=== PATIENT | female | born 1985 | race African-American/Black ===

== ENCOUNTER 2022-07-23 09:20 | Outpatient (REF) | payer OTHER, SELFPAY ==
[2022-07-23 12:01] LABS: Hematocrit 33.7 % (37.0-47.0); Hemoglobin 10.9 g/dl (12.0-16.0); Mean Corpuscular HGB Conc 32.3 g/dl (31.0-35.0); Mean Corpuscular Hemoglobin 23.8 pg (27.0-33.0); Mean Corpuscular Volume 73.6 fL (80.0-98.0); Mean Platelet Volume 9.9 fL (9.4-12.3); Platelet Count 300 X10*3/uL (160-400); Red Blood Count 4.58 X10*6/uL (4.20-5.50); White Blood Count 6.6 X10*3/uL (4.8-10.8)
[2022-07-23 13:46] LABS: Alanine Aminotransferase 15 U/L (0-31); Albumin Level 3.9 g/dL (3.5-5.0); Alkaline Phosphatase 53 U/L (39-117); Anion Gap 12 (12-20); Aspartate Amino Transferase 17 U/L (5-31); Bilirubin Total 0.4 mg/dL (0.0-1.0); Blood Urea Nitrogen 20 mg/dL (9-16); Calcium 9.2 mg/dL (8.4-10.2); Carbon Dioxide 23 mmol/L (22-29); Chloride 108 mmol/L (96-108); Cholesterol 236 mg/dL; Estimated Glomerular Filt Rate > 60; Glucose Fasting 80 mg/dL (60-99); HDL Cholesterol 46 mg/dL; Iron 29 mcg/dL (30-160); LDL Cholesterol Calculated 177 mg/dl; Percent Iron Saturation 10 % (15-50); Potassium 4.5 mmol/L (3.3-5.1); Sodium 138 mmol/L (135-145); Total Iron Binding Capacity 290 mcg/dL (228-428); Total Protein 7.1 g/dL (6.5-8.0); Triglycerides 68 mg/dL; Unsaturated Iron Binding 261 ug/dL
[2022-07-23 14:05] LABS: Ferritin 12 ng/mL (10-122); TSH reflex Free T4 0.47 uIU/mL (0.32-4.0)
== END 2022-07-23 09:21 | disposition home or self-care (01) ==
LOC: HO.WFDLDS 09:20
PROVIDERS: Visit Provider Nurse Practitioner Family
DX: Z00.00 Encounter for general adult medical examination without abnormal findings (principal)
CPT/HCPCS: 36415; 80053; 80061; 82728; 83540; 84443; 85027

== ENCOUNTER 2022-08-23 09:52 | Outpatient (REF) | payer OTHER, SELFPAY ==
[2022-08-23 12:24] LABS: Iron 44 mcg/dL (30-160); Percent Iron Saturation 16 % (15-50); Total Iron Binding Capacity 268 mcg/dL (228-428); Unsaturated Iron Binding 224 ug/dL
[2022-08-23 12:40] LABS: Ferritin 32 ng/mL (10-122)
== END 2022-08-23 09:53 | disposition home or self-care (01) ==
LOC: HO.WFDLDS 09:52
PROVIDERS: Visit Provider Nurse Practitioner Family
DX: D64.9 Anemia, unspecified (principal)
CPT/HCPCS: 36415; 82728; 83540

== ENCOUNTER 2022-08-27 12:49 | Outpatient (REF) | payer OTHER, SELFPAY ==
[2022-08-27 14:17] LABS: Hematocrit 33.8 % (37.0-47.0); Mean Corpuscular HGB Conc 32.5 g/dl (31.0-35.0); Mean Corpuscular Volume 73.8 fL (80.0-98.0); Mean Platelet Volume 9.5 fL (9.4-12.3); Platelet Count 331 X10*3/uL (160-400); Red Blood Count 4.58 X10*6/uL (4.20-5.50); Red Cell Distribution Width 17.6 % (11.0-16.0); White Blood Count 6.4 X10*3/uL (4.8-10.8)
== END 2022-08-27 12:50 | disposition home or self-care (01) ==
LOC: HO.WFDLDS 12:49
PROVIDERS: Visit Provider Nurse Practitioner Family
DX: D64.9 Anemia, unspecified (principal)
CPT/HCPCS: 36415; 85027

== ENCOUNTER 2022-11-06 11:16 | Outpatient (REF) | payer OTHER, SELFPAY ==
[2022-11-06 14:33] LABS: Hematocrit 37.1 % (37.0-47.0); Hemoglobin 12.1 g/dl (12.0-16.0); Mean Corpuscular HGB Conc 32.6 g/dl (31.0-35.0); Mean Corpuscular Hemoglobin 25.2 pg (27.0-33.0); Mean Corpuscular Volume 77.3 fL (80.0-98.0); Mean Platelet Volume 10.1 fL (9.4-12.3); Platelet Count 315 X10*3/uL (160-400); Red Cell Distribution Width 16.8 % (11.0-16.0); White Blood Count 5.1 X10*3/uL (4.8-10.8)
== END 2022-11-06 11:17 | disposition home or self-care (01) ==
LOC: HO.WFDLDS 11:16
PROVIDERS: Visit Provider Nurse Practitioner Family
DX: D50.9 Iron deficiency anemia, unspecified (principal)
CPT/HCPCS: 36415; 85027

== ENCOUNTER 2022-11-08 16:33 | Outpatient (AMB) | payer OTHER, SELFPAY ==
[2022-11-08 16:44] VITALS: BP 118/74; PULSE 84; RESP 12; TEMP 36.4; O2SAT 99; BMI 41.0
--- NOTE | 2022-11-08 16:44 | MHC.PC.OV ---
Vital Signs 11/08/22 16:44 Height 5 ft 5 in Weight 246 lb 4 oz BMI 41.0 BP 118/74 Blood Pressure Location Lt brachial Position Sitting Respiration 12 Pulse 84 Pulse Source Pulse Oximeter Temp 97.6 F Temp Source Temporal Artery Scan Pulse Oximetry (%) 99 Oxygen Delivery Method Room Air Intake Visit Reasons: 6W. F/U-Anemia Intake Note: Patient states that when she was taking iron pills she felt as though they were causing her heart to flutter, and when she looked it up that was one of the side effects. Patient ultimately stopped taking them due to heart flutters and since she stopped taking them she hasn't experienced a heart flutter since. Patient states she doesn't know if she should lower dose or ask for alternative. 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 Accompanied by: Self / Same As Patient Allergies No Known Allergies Allergy (Verified 11/08/22 17:00) Medication List - Last Reconciled 11/08/22 by Candace La CNP ferrous sulfate 325 mg PO DAILY 30 days Tobacco use date assessed: 07/12/22 Dental Screening Dental Screen Date: 11/08/22 Did you have a dental visit in the last 12 months?: Yes Did you have a dental problem in the last 6 months where you did not have access to dental care?: No Was dental information given to patient?: Patient has dentist HPI HPI Comments History of Present Illness Details 37-year-old female presents for iron deficiency anemia follow-up. She notes she was experiencing heart flutter which she correlated to the for ferrous sulfate she was taking after looking up the side effects online. She notes she has not experienced heart flutter since she stopped taking the medication 2 weeks ago. She denies acute symptoms. 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 Fahrad Curtis, Jessica Phillips, Franky Del Angel and colleagues, with an educational areli from [employer]. Review of Systems Const Details: Const Denies chills, Denies fatigue, Denies fever(s), Denies headache(s) and Denies weakness ENT Denies dizziness and Denies headache(s) Card Denies chest pain, Denies lightheadedness, Denies dyspnea and Denies other (Palpitations) Resp Denies cough, Denies dyspnea, Denies wheezing and Denies other ( shortness of breath) GI Denies abdominal pain, Denies melena, Denies hematochezia, Denies change in bowel habits, Denies dyspepsia and Denies nausea Denies hematuria and Denies dysuria Musc Denies abnormal gait, Denies myalgias, Denies arthralgias, Denies numbness and Denies tingling Skin/Breast Denies rash, Denies unusual bruising and Denies wounds Neuro Denies abnormal gait, Denies dizziness, Denies headache(s), Denies memory loss, Denies numbness, Denies Sensory deficit (Neuro), Denies tingling and Denies weakness Psych Denies anxiety, Denies depression, Denies memory loss Endo Denies cold intolerance, Denies fatigue, Denies heat intolerance, Denies polydipsia and Denies polyuria Aller/Immun Denies wheezing Physical exam (Primary Care) Vital Signs: Last Vital Signs Temp 97.6 F 11/08/22 16:44 Pulse 84 11/08/22 16:44 Resp 12 11/08/22 16:44 BP 118/74 11/08/22 16:44 Pulse Ox 99 11/08/22 16:44 Oxygen Delivery Method Room Air 11/08/22 16:44 BMI result Body Mass Index 41.0 Tobacco/Smoking Status: Tobacco use Status Tobacco use date assessed 07/12/22 11/08/22 16:52 Patient Tobacco Use Status Never used Tobacco 11/08/22 16:52 e-Cigarette/Vaping Use Never Used 11/08/22 16:52 Const Other: General: no acute distress and well developed Nutritional Appearance: well nourished Orientation/consciousness: patient oriented x3 [facility] Head: Yes normocephalic and Yes atraumatic Eyes General: appearance normal, both eyes and all related structures Pupils: Equal, round and reactive pupils present EOM: EOMs intact bilaterally Resp Effort & Inspection: normal respiratory effort Auscultation: clear to auscultation bilaterally Cardio Rate: regular rate Rhythm: regular rhythm Heart sounds: S1 normal heart sound present, S2 normal heart sound present, no gallops, no murmurs and no rubs GI Palpation (GI): No Abdominal aortic bruit present, Soft to palpation, nontender, No hepatosplenomegaly present and No Rebound tenderness present Auscultation: normal bowel sounds General: Yes no CVA tenderness Back/Spine/Pelvis Back: no CVA tenderness Cervical Spine: cervical ROM normal and No Cervical spine tenderness Thoracic/Lumbar Spine: thoraco-lumbar ROM normal, No pain with thoraco-lumbar ROM, No thoracic spinal tenderness and No lumbar spinal tenderness Extrem General: Yes normal to inspection, No edema and No calf tenderness Skin General: warm and dry. Normal skin color. Normal skin turgor Lesions: no lesions Rashes: no rashes Neuro General: patient oriented x3, gait normal and no focal neuro deficit Cranial nerves: Yes Equal, round and reactive pupils present Cognition (Neuro): normal cognition Gait exam (Neuro): Normal gait present Sensory Exam: No Sensory deficit (Neuro) Psych Appearance: grossly normal Affect: normal affect Attitude: cooperative Thought process: Normal thought process present Assessment and Plan Assessment & Plan (1) Iron deficiency anemia: Code(s): D50.9 - Iron deficiency anemia, unspecified Plan: She had blood work done on 11/06/2022. H&H have improved Recent orders for iron studies is outstanding. Previous a iron studies and ferritin levels were normal. Encouraged to get iron studies blood work done She was on ferrous sulfate for approximately 4 months; advise to stop taking the medication due to adverse reaction; H&H and iron studies currently stable Encouraged to schedule her next physical for a year from today Return sooner with symptoms or concerns Verbalized understanding and agreed with the plan. Coding Level of Care Code Est Pt Level 3 (08074) Diagnoses Iron deficiency anemia D50.9 Time Spent (min) 25
== END 2022-11-08 17:25 | disposition home or self-care (01) ==
PROVIDERS: PCP Nurse Practitioner Family; Visit Provider Nurse Practitioner Family
DX: D50.9 Iron deficiency anemia, unspecified (principal)
CPT/HCPCS: 99213

== ENCOUNTER 2022-11-22 10:08 | Outpatient (REF) | payer OTHER, SELFPAY ==
[2022-11-22 12:51] LABS: Iron 52 mcg/dL (30-160); Percent Iron Saturation 21 % (15-50); Total Iron Binding Capacity 244 mcg/dL (228-428); Unsaturated Iron Binding 192 ug/dL
[2022-11-22 12:53] LABS: Ferritin 41 ng/mL (10-122)
== END 2022-11-22 10:09 | disposition home or self-care (01) ==
LOC: HO.WFDLDS 10:08
PROVIDERS: Visit Provider Nurse Practitioner Family
DX: D50.9 Iron deficiency anemia, unspecified (principal)
CPT/HCPCS: 36415; 82728; 83540

== ENCOUNTER 2022-11-26 14:25 | Outpatient (AMB) | payer OTHER, SELFPAY ==
--- NOTE | 2022-11-26 14:41 | A.OFFVIS_ITS ---
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 She is 37 years old she has never been and she has never gone anywhere for a Pap smear or pelvic exam over time she has become more afraid of them. She is sexually active with the same partner since 2019 and things are good. If she is got she would be happy. 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 Some of her classes are online. She does not contraceptive and is not interested in that at this time. She recently started getting primary healthcare and had a whole battery of fasting blood work and says she was told it was pretty good and she did not have diabetes but her cholesterol was a little elevated but would get better if she ate better. She is actually pretty sure that she has never had the Gardasil vaccine because she says it came around right after her she was in the age range for it. 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 Cognitive needs: No Hearing needs: No Vision needs: No Female Reproductive History Menstrual Age of Menarche: 11 Duration of menses: 3-5 days Date of last menstrual period: 11/02/22 control method: none Total pregnancies: 0 History of abnormal pap smear: No History of STI: No History of abnormal mammogram: Yes (fibroadenoma) Physical Exam Vital Signs: Last Vital Signs BP 124/64 11/26/22 14:42 BMI result Body Mass Index 40.4 Const General: healthy appearing, comfortable, no acute distress, well developed and alert Nutritional Appearance: average body habitus and obese Orientation/consciousness: patient oriented x3 Limitations: no limitations HEENT Head: Yes normocephalic Neck Neck: Yes normal visual inspection Thyroid: Thyroid normal Chest Chest palpation & inspection: normal inspection of the chest Breast/axilla inspection: normal inspection of the breasts, normal inspection of the axillae and Other (Breasts are pendulous) Breast/axilla palpation: normal palpation of the breasts and normal palpation of the axillae Resp Effort & Inspection: normal respiratory effort GI Inspection: Yes normal to inspection, No Abdominal wall edema and No distended Palpation (GI): Soft to palpation and nontender Other: External exam is completely within normal limits vagina is pink and moist cervix is nulliparous pink small moist mobile nontender uterus nontender difficult to feel secondary to adipose but nontender not enlarged. Adnexa not enlarged good tone with Kegel.. General: Yes bladder normal to palpation External Female Exam: normal external appearance (Small white lesions consistent with collections of sebum) and normal appearance of the urethra Speculum Exam - Vagina: normal appearance of the vagina, normal palpation and normal vaginal discharge Speculum Exam - Cervix: normal appearance of the cervix, normal palpation and nontender Bimanual exam- vagina & uterus: normal bimanual exam, normal palpation, uterine size normal, bladder normal to palpation, consistency normal, normal palpation, uterine mobility normal, uterine shape normal, No Cervical tenderness present, non-tender and no cervical motion tenderness Bimanual Exam- Adnexa, other: normal adnexae, no masses, normal and No adnexal tenderness Neuro General: patient oriented x3 Assessment & Plan Assessment & Plan (1) Pap smear for cervical cancer screening: Comment: First Pap in 1st pelvic exam 11/26/2022. Recommend that patient consider getting Gardasil vaccine series Code(s): Z12.4 - Encounter for screening for malignant neoplasm of cervix (2) Well woman exam with routine gynecological exam: Code(s): Z01.419 - Encounter for gynecological examination (general) (routine) without abnormal findings (3) Obesity, morbid, BMI 40.0-49.9: Comment: Patient is embarking on trying to get in good exercise routine and healthier eating patterns to lose weight. Code(s): E66.01 - Morbid (severe) obesity due to excess calories (4) Screen for sexually transmitted diseases: Code(s): Z11.3 - Encounter for screening for infections with a predominantly sexual mode of transmission Plan -----Discussed in this visit the following: healthy balanced diet, regular and consistent exercise, getting recommended health screens, doing the best she can for her particular health concerns, kegel exercises, pap smear screening and followup recommendations, mammography screening and SBE, normal changes in cycles in her life stage--- .---Discussed with pt, her wt, and BMI, and her goals. Discussed ideal dietary guidelines to assist in weight loss, focusing on vegetables and fruits and lean proteins, and minimizing fats and carbohydrates and eliminating empty calories. Discussed exercise, including regular, sufficient, and consistent cardio based exercise, and weight bearing exercise. Discussed barriers to exercise and healthy eating, and possible ways of establishing newer healthier habits. Discussed supports to help in her efforts, and timing issues. Discussed adequate sleep, and ways to achieve this. Discussed adequate water intake.-- --Discussed that after age 35 the risks of infertility, risks of miscarriage, and chromosomal abnormalities are increased, as well as the risk of complications should she can see if, including diabetes and hypertensive disorders of , pre term delivery and others. I recommend starting vitamins if she has not already started. Discussed that these risks or go up with time. They are much more increased if somebody has any pre-existing conditions. First Pap was done I do recommend she consider getting the Gardasil vaccine as she has never had it and she can check out with her insurance as to whether not to be covered to give here or get it at 1 of the local pharmacies. Additionally encouraged healthier eating and getting to healthier placed before getting discussed that she would be at high risk because of her weight and issues of concern would be preeclampsia hypertension diabetes and more difficult deliveries. I offered her testing for HIV hep B hep C and syphilis. She can get them whenever she wants. First Pap was done as well as testing for gonorrhea chlamydia trichomoniasis Gardnerella and Carol. RTC 1 year if not necessary before. Mammograms started age 41. Orders: Orders Hepatitis B Surface Antigen Today E66.01 - Morbid (severe) obesity due to excess calories, Z01.419 - Encounter for gynecological examination (general) (routine) without abnormal findings, Z11.3 - Encounter for screening for infections with a predominantly sexual mode of transmission, Z12.4 - Encounter for screening for malignant neoplasm of cervix Hepatitis C Antibody Today E66.01 - Morbid (severe) obesity due to excess calories, Z01.419 - Encounter for gynecological examination (general) (routine) without abnormal findings, Z11.3 - Encounter for screening for infections with a predominantly sexual mode of transmission, Z12.4 - Encounter for screening for malignant neoplasm of cervix HIV Ab/Ag Today E66.01 - Morbid (severe) obesity due to excess calories, Z01.419 - Encounter for gynecological examination (general) (routine) without abnormal findings, Z11.3 - Encounter for screening for infections with a predominantly sexual mode of transmission, Z12.4 - Encounter for screening for malignant neoplasm of cervix Syphilis Screen Today E66.01 - Morbid (severe) obesity due to excess calories, Z01.419 - Encounter for gynecological examination (general) (routine) without abnormal findings, Z11.3 - Encounter for screening for infections with a predominantly sexual mode of transmission, Z12.4 - Encounter for screening for malignant neoplasm of cervix Pap Smear Today Z01.419 - Encounter for gynecological examination (general) (routine) without abnormal findings CT NG by PCR Today Z01.419 - Encounter for gynecological examination (general) (routine) without abnormal findings Coding Level of Care Code New Pt Prev Care 18-39yr([id number] Diagnoses Pap smear for cervical cancer screening Z12.4 Well woman exam with routine gynecological exam Z01.419 Obesity, morbid, BMI 40.0-49.9 E66.01 Screen for sexually transmitted diseases Z11.3
[2022-11-26 14:42] VITALS: BP 124/64; BMI 40.4
== END 2022-11-26 15:48 | disposition home or self-care (01) ==
LOC: HO.HWS 14:25
PROVIDERS: PCP Nurse Practitioner Family; Visit Provider Advanced Practice Midwife
DX: Z12.4 Encounter for screening for malignant neoplasm of cervix (principal); Z01.419 Encounter for gynecological examination (general) (routine) without abnormal findings; E66.01 Morbid (severe) obesity due to excess calories; Z11.3 Encounter for screening for infections with a predominantly sexual mode of transmission
CPT/HCPCS: 99385

== ENCOUNTER → 2022-11-26 14:25 | Outpatient (BNVA) | payer OTHER, SELFPAY | PROVIDERS: PCP Nurse Practitioner Family; Visit Provider Advanced Practice Midwife ==

== ENCOUNTER 2022-11-26 17:10 | Outpatient (REF) | payer OTHER, SELFPAY ==
[2022-11-26 18:49] LABS: CT PCR NOT DETECTED (Not Detect.); NG PCR NOT DETECTED (Not Detect.)
[2022-11-27 14:03] LABS: BV Int Neg Control Negative (Negative); BV Int Pos Control Positive (Positive)
[2022-11-29 21:59] LABS: HPV mRNA E6/E7 rflx Not Detected (Not Detected)
== END 2022-11-26 17:11 | disposition home or self-care (01) ==
LOC: HO.LNP 17:10
PROVIDERS: Visit Provider Advanced Practice Midwife
DX: Z01.419 Encounter for gynecological examination (general) (routine) without abnormal findings (principal); Z11.3 Encounter for screening for infections with a predominantly sexual mode of transmission
CPT/HCPCS: 0353U; 87480; 87510; 87624; 87660; 88142

== ENCOUNTER 2023-07-15 12:53 | Outpatient (AMB) | payer OTHER, SELFPAY ==
--- NOTE | 2023-07-15 13:00 | A.OFFPC_ITS ---
Vital Signs 07/15/23 13:04 Height 5 ft 5 in Weight 248 lb 8 oz BMI 41.3 BP 120/80 Blood Pressure Location Lt brachial Position Sitting Respiration 14 Pulse 94 Pulse Source Pulse Oximeter Temp 98.4 F Temp Source Oral Intake Visit Reasons: CPE Intake Note: Physical. 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 She has past medical history significant for iron-deficiency anemia, hypercholesterolemia, and morbid obesity. She is currently not on prescription medications. She reports sinus congestion for the past 10 days. She had a fever on day one which completely resolved. She has tried OTC remedies, including sudafed with some relief. No headaches, fever, chills, body aches, fatigue, or weakness. No sick contact. She has not been exercising consistently in the past 6 months. Her diet has been poor, including fast foods. She plans to start exercising routinely. She is willing to be referred to lunchroom monitor/dietitian. Last Pap smear test with [facility]/laborer was 11/26/2022: Normal. She is not up-to-date on the current flu vaccine. She notes that she has never been vaccinated for the flu and does not want to be vaccinated. [facility] Medical History (Updated 07/15/23 @ 13:30 by Candace La CNP) No pertinent past medical history Surgical History (Updated 11/26/22 @ 14:56 by Paulina Gtz LPN) H/O removal of neck cyst No pertinent past surgical history Family History (Updated 07/15/23 @ 13:04 by Radha Little CMA) Mother High blood pressure Alcoholism in family Rheumatoid arthritis Father Diabetes Psychiatric diagnosis Paternal Grandmother Diabetes Paternal Grandfather Cancer Other FH: mental illness Substance abuse Social History Housing: Apartment Patient Tobacco Use Status: Never used Tobacco e-Cigarette/Vaping Use: Never Used Second Hand Smoke Exposure: No service: No Current occupational status: employed Current occupation: [employer] Current occupational exposures/hazards: No Cognitive needs: No Hearing needs: No Vision needs: No Female Reproductive History Menstrual Age of Menarche: 11 Date of last menstrual period: 07/12/23 Questionnaire PHQ-9 Over the last 2 weeks, how often have you been bothered by any of the following problems? 1. Little interest or pleasure in doing things: not at all 2. Feeling down, depressed, or hopeless: several days 3. Trouble falling or staying asleep, or sleeping too much: not at all 4. Feeling tired or having little energy: not at all 5. Poor appetite or overeating: nearly every day 6. Feeling bad about yourself - or that you are a failure or have let yourself or your family down: several days 7. Trouble concentrating on things, such as reading the newspaper or watching television: not at all 8. Moving or speaking so slowly that other people could have noticed. Or the opposite - being so fidgety or restless that you have been moving around a lot more than usual: not at all 9. Thoughts that you would be better off or of hurting yourself in some way: not at all Total score: 5 Depression Screening Interpretation: Negative Depression Screening Done: Yes 74624 - PHQ-9 Billing: Yes Source: Developed by Drs. Farhad Curtis, Jessica Phillips, Franky Del Angel and colleagues, with an educational areli from [employer]. Thrive Questionnaire Date Thrive assessed: 07/15/23 I am a: Patient What is your living situation today?: I have a steady place to live Within the past 12 months, did the food you bought not last and you didn't have the money to get more?: Never true Within the past 12 months, did you worry whether your food would run out before you got money to buy more?: Never true Do you have trouble paying for medicines?: No Do you have trouble getting transportation to medical appointments?: No Do you have trouble paying your heating and electricity bill?: No Do you have trouble taking care of your child, family member or friend?: No Do you have trouble with day-to-day activities such as bathing, preparing meals, shopping, managing finances, etc.?: No Are you currently unemployed and looking for a job?: No Are you interested in more education?: No Please select the resources that you would like help with: None Currently or been in a relationship where the following occur: no concerns reported THRIVE Score: 0 AUDIT C Alcohol Use Questionnaire (AUDIT-C) 1. How often do you have a drink containing alcohol?: Monthly or less 2. How many drinks containing alcohol do you have on a typical day when you are drinking?: 1 or 2 3. How often do you have six or more drinks on one occasion?: Never Total Score: 1 PAZ-7 AMB Questionnaire PAZ-7 Date PAZ - 7 assessed: 07/15/23 Feeling nervous, anxious, or on edge: 1 = Several days Not being able to stop or control worryin = Several days Worrying too much about different things: 1 = Several days Trouble relaxin = Not at all Being so restless that it is hard to sit still: 0 = Not at all Becoming easily annoyed or irritable: 1 = Several days Feeling afraid as if something awful might happen: 0 = Not at all Total PAZ-7 score (0-4 normal; 5-9 mild; 10-14 moderate; 15-21 severe): 4 Source: Developed by Drs. Farhad Curtis, Jessica Phillips, Franky Del Angel and colleagues, with an educational areli from [employer]. PAZ-7 Assessment Billing PAZ-7 Assessment Tool: PAZ-7 Assessment 87249 Review of Systems Const Details: Denies chills, Denies fatigue, Denies fever(s), Denies headache(s) and Denies weakness HEENT Denies change in vision, Denies dizziness, Denies headache(s), Denies hearing loss, Reports nasal congestion, Denies sinus pain, Denies sinus pressure and Denies sore throat Card Denies chest pain, Denies lightheadedness, Denies dyspnea and Denies other (palpitations) Resp Denies cough, Denies dyspnea and Denies wheezing GI Denies abdominal pain, Denies melena, Denies hematochezia, Denies change in bowel habits, Denies dyspepsia and Denies nausea Denies hematuria and Denies dysuria Musc Denies abnormal gait, Denies myalgias, Denies arthralgias, Denies numbness and Denies tingling Skin/Breast Denies rash, Denies unusual bruising and Denies wounds Neuro Denies abnormal gait, Denies dizziness, Denies headache(s), Denies memory loss, Denies numbness, Denies Sensory deficit (Neuro), Denies tingling and Denies weakness Psych Denies anxiety, Denies depression and Denies memory loss Endo Denies cold intolerance, Denies fatigue, Denies heat intolerance, Denies polydipsia and Denies polyuria Ender/Lymph Denies easy bleeding and Denies easy bruising Aller/Immun Denies wheezing Physical exam (Primary Care) Vital Signs: Last Vital Signs Temp 98.4 F 07/15/23 13:04 Pulse 94 07/15/23 13:04 Resp 14 07/15/23 13:04 BP 120/80 07/15/23 13:04 BMI result Body Mass Index 41.3 Tobacco/Smoking Status: Tobacco use Status Tobacco use date assessed 07/15/23 07/15/23 13:11 Patient Tobacco Use Status Never used Tobacco 07/15/23 13:11 e-Cigarette/Vaping Use Never Used 07/15/23 13:11 PHQ-9: PHQ-9 Score PHQ-9: Total score 5 07/15/23 13:11 Depression Screening Interpretation: Negative Thrive Assessment: Date of Thrive Assessment Date Thrive assessed 07/15/23 07/15/23 13:11 Currently or been in a relationship where the following occur: no concerns reported Const Other: General: no acute distress, well developed, alert and awake Nutritional Appearance: well nourished Orientation/consciousness: patient oriented x3 HENMT Head is normocephalic Bilateral ear canal and TM are normal Nasal turbinates with slight erythema and edema Oropharynx are pink and moist Sinuses are nontender with palpation No auricular or cervical lymphadenopathy Ears: hearing grossly normal bilaterally and TM's normal bilaterally General nose exam: Normal external nose present and Normal nares present Mouth: Normal oral and palatal mucosa present and moist mucous membranes Teeth and gingiva: dentition normal Throat: Yes oropharynx normal Eyes Pupils: Equal, round and reactive pupils present and Pupil accommodation reflex normal EOM: EOMs intact bilaterally Neck Neck: Yes normal visual inspection, Yes no lymphadenopathy and Yes trachea midline Thyroid: Thyroid normal Carotids: no bruits Lymphatic: no lymphadenopathy noted Chest Chest palpation & inspection: normal inspection of the chest Resp Effort & Inspection: normal respiratory effort Auscultation: clear to auscultation bilaterally Cardio Rate: regular rate Rhythm: regular rhythm Heart sounds: S1 normal heart sound present, S2 normal heart sound present, no gallops, no murmurs and no rubs Bruits: no abdominal aortic bruits and no carotid bruits GI Palpation (GI): No Abdominal aortic bruit present, Soft to palpation, nontender, No hepatosplenomegaly present and No Rebound tenderness present Auscultation: normal bowel sounds General: Yes no CVA tenderness Back/Spine/Pelvis Back: no CVA tenderness Cervical Spine: cervical ROM normal and No Cervical spine tenderness Thoracic/Lumbar Spine: thoraco-lumbar ROM normal, No pain with thoraco-lumbar ROM, No thoracic spinal tenderness and No lumbar spinal tenderness Skin General: warm and dry. Normal skin color. Normal skin turgor Lesions: no lesions Rashes: no rashes Trauma: no lacerations or abrasions Wounds: no wounds Nails: normal Neuro General: patient oriented x3, gait normal and CN's II-XI intact bilaterally Cranial nerves: Yes Equal, round and reactive pupils present Cognition (Neuro): normal cognition Gait exam (Neuro): Normal gait present Motor exam (neuro): 5/5 motor strength present throughout Sensory Exam: No Sensory deficit (Neuro) Deep tendon reflexes (DTR's): Right patellar reflex intensity grade: 2+ and Left patellar reflex intensity grade: 2+ Extrem General: Yes normal to inspection, No edema and No calf tenderness Psych Appearance: grossly normal Affect: normal affect Attitude: cooperative Thought process: Normal thought process present Assessment and Plan Assessment & Plan (1) Physical exam, annual: Code(s): Z00.00 - Encounter for general adult medical examination without abnormal findings Plan: No significant physical restrictions or limitations noted Continue current treatment treatment Advised to get labs done in follow-up for telehealth visit with a 3 weeks for labs review Return with symptoms or concerns Verbalized understanding and agreed with treatment plan (2) Nasal congestion: Code(s): R09.81 - Nasal congestion Plan: Reports nasal congestion for the past 10 days. No headaches, sinus tenderness, fever, chills, or body aches. Nasal turbinates with slight erythema and edema Likely viral illness Flonase ordered. Advised to use as prescribed Adequate hydration encouraged Follow-up with worsening or new symptoms Verbalized understanding and agreed with treatment plan (3) Obesity, morbid, BMI 40.0-49.9: Comment: Patient is embarking on trying to get in good exercise routine and healthier eating patterns to lose weight. Code(s): E66.01 - Morbid (severe) obesity due to excess calories Plan: She has not been exercising consistently in the past 6 months. Her diet has been poor, including fast foods. She plans to start exercising routinely. Healthy diet and routine exercise encouraged Referred to [facility] dietitian/lunchroom monitor Follow-up with symptoms or concerns Verbalized understanding and agreed with the treatment plan (4) Laboratory tests ordered as part of a complete physical exam (CPE): Code(s): Z00.00 - Encounter for general adult medical examination without abnormal findings Plan: Fasting labs ordered as part of a complete physical exam. Advised to fast for at least 10 hours before getting labs drawn. May drink water Verbalized understanding and agreed with treatment plan. Orders: Orders Comprehensive [place]. Panel Fast Today Z00.00 - Encounter for general adult medical examination without abnormal findings TSH reflex Free T4 Today Z00.00 - Encounter for general adult medical examination without abnormal findings Complete Blood Count Auto Diff Today Z00.00 - Encounter for general adult medical examination without abnormal findings Lipid Panel Today Z00.00 - Encounter for general adult medical examination without abnormal findings UA CC w/rflx Micro + Cult Today Z00.00 - Encounter for general adult medical examination without abnormal findings Referrals Nutrition/Dietitian Referral E66.01 - Morbid (severe) obesity due to excess calories Medications: New fluticasone propionate 50 mcg/actuation (Flonase Allergy Relief) administer into each nostril 1 spray intranasal BID 30 days 16 grams 2RF Coding Level of Care Code Est Pt Prev Care 18-39y(59424) Diagnoses Physical exam, annual Z00.00 Nasal congestion R09.81 Obesity, morbid, BMI 40.0-49.9 E66.01 Laboratory tests ordered as part of a complete physical exam (CPE) Z00.00 Additional Codes PAZ-7 Assessment Billing - PAZ-7 Assessment Tool: PAZ-7 Assessment 52553 ([id number])
[2023-07-15 13:04] VITALS: BP 120/80; PULSE 94; RESP 14; TEMP 36.9; BMI 41.3
== END 2023-07-15 13:38 | disposition home or self-care (01) ==
PROVIDERS: Visit Provider Nurse Practitioner Family
DX: Z00.00 Encounter for general adult medical examination without abnormal findings (principal); E66.01 Morbid (severe) obesity due to excess calories; Z68.41 Body mass index [BMI] 40.0-44.9, adult; R09.81 Nasal congestion
CPT/HCPCS: 99395

== ENCOUNTER 2023-07-18 11:20 | Outpatient (REF) | payer OTHER, SELFPAY ==
[2023-07-18 14:39] LABS: MANUAL DIFF FLAG NO
[2023-07-18 15:16] LABS: Basophils Absolute Auto 0.1 X10*3/uL (0.0-0.2); Eosinophils Absolute Auto 0.2 X10*3/uL (0.0-0.4); Eosinophils Percent Auto 2.9 % (0-4); Hematocrit 33.8 % (37.0-47.0); Hemoglobin 11.2 g/dl (12.0-16.0); Imm Gran Abs Auto 0.02 X10*3/uL (0.00-0.03); Imm Gran Pct Auto 0.4 % (0.0-0.4); Lymphocytes Absolute Auto 2.4 X10*3/uL (1.2-4.9); Lymphocytes Percent Auto 46.9 % (20-40); Mean Corpuscular HGB Conc 33.1 g/dl (31.0-35.0); Mean Corpuscular Hemoglobin 24.8 pg (27.0-33.0); Mean Corpuscular Volume 74.9 fL (80.0-98.0); Mean Platelet Volume 9.3 fL (9.4-12.3); Monocytes Absolute Auto 0.4 X10*3/uL (0.1-1.2); Monocytes Percent Auto 8.5 % (2-11); Neutrophils Absolute Auto 2.1 x10*3/uL (2.0-8.3); Neutrophils Percent Auto 40.3 % (45-73); Platelet Count 314 X10*3/uL (160-400); Red Blood Count 4.51 X10*6/uL (4.20-5.50); Red Cell Distribution Width 16.4 % (11.0-16.0); White Blood Count 5.2 X10*3/uL (4.8-10.8)
[2023-07-18 15:31] LABS: Appearance Urine Clear; Color Urine Yellow; Glucose Urine UA Negative (Negative); Leukocyte Esterase Urine Negative (Negative); Nitrite Urine Negative (Negative); PH 6.5 (5.0-9.0); Specific Gravity - Urine 1.015 (1.005-1.025); Urine Blood Negative (Negative); Urine Ketones Negative (Negative); Urine Protein Negative (Neg-Trace)
[2023-07-18 17:02] LABS: Alanine Aminotransferase 20 U/L (0-31); Albumin Level 3.8 g/dL (3.5-5.0); Alkaline Phosphatase 51 U/L (39-117); Anion Gap 10 (12-20); Aspartate Amino Transferase 18 U/L (5-31); Bilirubin Total 0.3 mg/dL (0.0-1.0); Blood Urea Nitrogen 17 mg/dL (9-16); Calcium 8.9 mg/dL (8.4-10.2); Carbon Dioxide 22 mmol/L (22-29); Chloride 108 mmol/L (96-108); Cholesterol 240 mg/dL (<200); Estimated Glomerular Filt Rate > 60; Glucose Fasting 81 mg/dL (60-99); HDL Cholesterol 43 mg/dL (>40); LDL Cholesterol Calculated 177 mg/dL (<100); Sodium 136 mmol/L (135-145); Total Protein 7.4 g/dL (6.5-8.0); Triglycerides 100 mg/dL (<150)
[2023-07-18 17:04] LABS: TSH reflex Free T4 0.33 uIU/mL (0.32-4.0)
== END 2023-07-18 11:21 | disposition home or self-care (01) ==
LOC: HO.WFDLDS 11:20
PROVIDERS: Visit Provider Nurse Practitioner Family
DX: Z00.00 Encounter for general adult medical examination without abnormal findings (principal)
CPT/HCPCS: 36415; 80053; 80061; 81003; 84443; 85025

== ENCOUNTER 2023-08-01 14:59 | Outpatient (AMB) | payer OTHER, SELFPAY ==
--- NOTE | 2023-08-01 14:56 | MHC.PC.OV ---
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 She stopped taking the medication because she felt her heart racing while on the medication She reports normal menstrual flow She offers no complaints and denies acute symptoms at this time [facility] Medical History (Updated 07/15/23 @ 13:30 by Candace La CNP) No pertinent past medical history Surgical History (Updated 11/26/22 @ 14:56 by Paulina Gtz LPN) H/O removal of neck cyst No pertinent past surgical history Family History (Updated 07/15/23 @ 13:04 by Radha Little CMA) Mother High blood pressure Alcoholism in family Rheumatoid arthritis Father Diabetes Psychiatric diagnosis Paternal Grandmother Diabetes Paternal Grandfather Cancer Other FH: mental illness Substance abuse Social History Housing: Apartment Patient Tobacco Use Status: Never used Tobacco e-Cigarette/Vaping Use: Never Used Second Hand Smoke Exposure: No service: No Current occupational status: employed Current occupation: [employer] Current occupational exposures/hazards: No Cognitive needs: No Hearing needs: No Vision needs: No Female Reproductive History Menstrual Age of Menarche: 11 Questionnaire Thrive Questionnaire Date Thrive assessed: 07/15/23 PAZ-7 AMB Questionnaire PAZ-7 Date PAZ - 7 assessed: 07/15/23 Source: Developed by Drs. Farhad Curtis, Jessica Phillips, Franky Del Angel and colleagues, with an educational areli from [employer]. Review of Systems Const Details: Const Denies chills, Denies fatigue, Denies fever(s), Denies headache(s) and Denies weakness ENT Denies dizziness and Denies headache(s) Card Denies chest pain, Denies lightheadedness, Denies dyspnea and Denies other (Palpitations) Resp Denies cough, Denies dyspnea, Denies wheezing and Denies other ( shortness of breath) GI Denies abdominal pain, Denies melena, Denies hematochezia, Denies change in bowel habits, Denies dyspepsia and Denies nausea Denies hematuria and Denies dysuria Musc Denies abnormal gait, Denies myalgias, Denies arthralgias, Denies numbness and Denies tingling Skin/Breast Denies rash, Denies unusual bruising and Denies wounds Neuro Denies abnormal gait, Denies dizziness, Denies headache(s), Denies memory loss, Denies numbness, Denies Sensory deficit (Neuro), Denies tingling and Denies weakness Psych Denies anxiety, Denies depression, Denies memory loss Endo Denies cold intolerance, Denies fatigue, Denies heat intolerance, Denies polydipsia and Denies polyuria Aller/Immun Denies wheezing Physical exam (Primary Care) Tobacco/Smoking Status: Tobacco use Status Tobacco use date assessed 07/15/23 08/01/23 14:57 Patient Tobacco Use Status Never used Tobacco 08/01/23 14:57 e-Cigarette/Vaping Use Never Used 08/01/23 14:57 Thrive Assessment: Date of Thrive Assessment Date Thrive assessed 07/15/23 08/01/23 14:57 Const Other: Telehealth visit. No physical exam Telehealth Telehealth Telehealth Platform: Telephone Location of provider rendering services: practice address Location of patient: address on file Patient Identification confirmed using: Name, : Yes Telehealth method: voice only Patient verbally consented to treatment: Yes Patient verbally consented to billing insurance company: Yes Patient informed of any privacy concerns related to visit: Yes Minutes spent on Phone/Video with Pt.: 20 Assessment and Plan Assessment & Plan (1) Iron deficiency anemia: Code(s): D50.9 - Iron deficiency anemia, unspecified Plan: Recent lab results reviewed with the patient H&H and MCV are slightly low, 11.2/33.8 and 74.9 respectively Referred to Hematology Retic count blood work recommended to determine possible cause. However, the patient would with to see Hematology Instructed on iron rich foods Follow-up with symptoms or concerns Verbalized understanding and agreed with treatment plan (2) Hypercholesterolemia: Code(s): E78.00 - Pure hypercholesterolemia, unspecified Plan: Recent total cholesterol and LDL levels are elevated, 240 and 177 respectively Advised to limit foods high in saturated fat and avoid foods high in trans fat Routine exercise encouraged Follow-up with dietitian as scheduled Will recheck lipid panel in 8 weeks. Advised to fast for 10-12 hours, may drink water only, and get blood work done a few days before her next visit Follow-up in eight weeks Verbalized understanding and agreed with the treatment plan Orders: Orders Lipid Panel 2 Months E78.00 - Pure hypercholesterolemia, unspecified Referrals Hematology & Oncology Referral D50.9 - Iron deficiency anemia, unspecified Coding Level of Care Code Tele Est Pt Level 2 (22188) Diagnoses Iron deficiency anemia D50.9 Hypercholesterolemia E78.00
== END 2023-08-01 16:16 | disposition home or self-care (01) ==
LOC: HO.HMGFM 14:59
PROVIDERS: PCP Nurse Practitioner Family; Visit Provider Nurse Practitioner Family
DX: D50.9 Iron deficiency anemia, unspecified (principal); E78.00 Pure hypercholesterolemia, unspecified
CPT/HCPCS: 99212

== ENCOUNTER 2023-08-07 12:24 | Outpatient (AMB) | payer OTHER, SELFPAY ==
[2023-08-07 12:40] VITALS: BMI 40.9
--- NOTE | 2023-08-07 12:40 | A.OFFVIS_ITS ---
VS Expanded 08/07/23 12:40 08/07/23 12:51 Height 5 ft 5 in 5 ft 5 in Weight 245 lb 13.047 oz 246 lb BMI 40.9 40.9 Intake Visit Reasons: Obesity due to excess calories/CONFIRMED Allergies No Known Allergies Allergy (Verified 08/01/23 14:57) Nutrition Presentation Details: PT presents for MNT for obesity. Pt was referred by Dr. Andrey Akins Pt reports needing meal planning education Lacks meal routine food frequency: fish : 0/wk fruits: milk yogurt: 0 vex/wk starches > 25 fluids: 16 oz /day (variety of beverages) physical activity: daily lifea ctivities ETOH-- smoking-- BS Monitoring Most Recent Diabetes Results: Cholesterol 240 mg/dL (<200) H 07/18/23 HDL Cholesterol 43 mg/dL (>40) 07/18/23 Triglycerides 100 mg/dL (<150) 07/18/23 Creatinine 0.85 mg/dL (0.5-1.4) 07/18/23 Blood Urea Nitrogen 17 mg/dL (9-16) H 07/18/23 Sodium 136 mmol/L (135-145) 07/18/23 Potassium 4.0 mmol/L (3.3-5.1) 07/18/23 Chloride 108 mmol/L (96-108) 07/18/23 Carbon Dioxide 22 mmol/L (22-29) 07/18/23 Calcium 8.9 mg/dL (8.4-10.2) 07/18/23 AST 18 U/L (5-31) 07/18/23 ALT 20 U/L (0-31) 07/18/23 Total Protein 7.4 g/dL (6.5-8.0) 07/18/23 Albumin 3.8 g/dL (3.5-5.0) 07/18/23 [id number]-Yh.Jeor Equation Height: 5 ft 5 in Weight: 246 lb Resting Metabolic Rate: 1803.56 Calculated Activity Level: Mild Activity Calories Needed to Maintain Weight: 2479.90 Diagnosis Nutrition problem #1: excessive energy intake As related to (etiology) #1: lack of nutrit education As evidenced by (sign/symptom) #1: knowledge deficit of diet Monitoring/Goals Nutrition problem monitoring: level of knowledge/skill and weight Outcome progress: verbalized understanding Learning/Education Readiness to learn: good Stages of change: preparation [facility] Medical History (Updated 08/18/23 @ 09:[address], LDN) No pertinent past medical history Surgical History (Updated 11/26/22 @ 14:56 by Paulina Gtz LPN) H/O removal of neck cyst No pertinent past surgical history Family History (Updated 07/15/23 @ 13:04 by Radha Little CMA) Mother High blood pressure Alcoholism in family Rheumatoid arthritis Father Diabetes Psychiatric diagnosis Paternal Grandmother Diabetes Paternal Grandfather Cancer Other FH: mental illness Substance abuse Social History Housing: Apartment Patient Tobacco Use Status: Never used Tobacco e-Cigarette/Vaping Use: Never Used Second Hand Smoke Exposure: No service: No Current occupational status: employed Current occupation: [employer] Current occupational exposures/hazards: No Cognitive needs: No Hearing needs: No Vision needs: No Female Reproductive History Menstrual Age of Menarche: 11 Assessment & Plan Assessment & Plan (1) Obesity, morbid, BMI 40.0-49.9: Code(s): E66.01 - Morbid (severe) obesity due to excess calories Category: Medical Plan: Wt: 112 Kg ( 07/2023 ) Est kcal needs as per MSJ: 2500 (40% carb, 30% protein/fat) Est fluid needs as per 25-30 ml/d: 3300 Est prot per day as per 1 g/kg bw: 112 Recommend fiber intake : 8-10 g per day and gradually increase to 25-28 g per day for women and 35-38 g for men or as tolerated Recommend sodium intake per day : less than 2000 mg Educated patient on: ( R = reviewed V = verbalizes understanding N/R = needs review N/A = not applicable * Food sources of carbohydrate, adequate serving sizes and its role in various health conditions: R V N/R * Differences between complex carbohydrates a simple carbohydrates, role of fiber in diet: R V N/R * Lean protein sources of foods: R V NR * Differences between types of fats and role in diet (mono on saturated fat fatty acids, saturated fatty acids, trans fats): R * Food sources of sodium in salt and healthy modifications for heart health in kidney health: R V R/V * Vitamins and minerals: R V N/R * Healthy plate method concept: R * Physical activity: Benefits a precaution: R * Hydration: R Patient Instructions: Work on reduction of high fat foods , choose baked /steam, reduce on sauces/gravies practice mindful eating Include fish sand twice a week replacing fast food meal (fried food) Drink water with meals and snacks and whenever feeling thirsty Coding Level of Care Code Nutr Indiv Subseq (48293) Diagnoses Obesity, morbid, BMI 40.0-49.9 E66.01 Time Spent (min) 30
[2023-08-18 09:28] VITALS: BMI 40.9
== END 2023-08-07 13:18 | disposition home or self-care (01) ==
PROVIDERS: PCP Nurse Practitioner Family; Visit Provider Dietitian, Registered
DX: E66.01 Morbid (severe) obesity due to excess calories (principal)

== ENCOUNTER → 2023-08-07 12:24 | Outpatient (BNVA) | payer OTHER, SELFPAY | PROVIDERS: PCP Nurse Practitioner Family; Visit Provider Dietitian, Registered | DX: E66.01 Morbid (severe) obesity due to excess calories (principal); Z68.41 Body mass index [BMI] 40.0-44.9, adult | CPT/HCPCS: 97803 ==

== ENCOUNTER → 2023-08-21 11:15 | Outpatient (BNV) | payer OTHER, SELFPAY | PROVIDERS: Visit Provider Internal Medicine Medical Oncology | DX: D50.9 Iron deficiency anemia, unspecified (principal) | CPT/HCPCS: 99204 ==

== ENCOUNTER 2023-09-18 09:56 | Outpatient (AMB) | payer OTHER, SELFPAY ==
[2023-09-18 10:11] VITALS: BMI 41.7
--- NOTE | 2023-09-18 10:11 | A.OFFVIS_ITS ---
VS Expanded 09/18/23 10:11 Height 5 ft 5 in Weight 250 lb 14.177 oz BMI 41.7 Intake Visit Reasons: OBESITY/CONFIRMED Allergies No Known Allergies Allergy (Verified 08/21/23 11:34) Nutrition Presentation Details: Pt presents for MNT f/u obesity Reports working on meal planning, started 3 wks ago Reports starting to walk daily (sometimes in AM and sometime in PM BS Monitoring Most Recent Diabetes Results: Cholesterol 240 mg/dL (<200) H 07/18/23 HDL Cholesterol 43 mg/dL (>40) 07/18/23 Triglycerides 100 mg/dL (<150) 07/18/23 Creatinine 0.86 mg/dL (0.5-1.4) 08/21/23 Blood Urea Nitrogen 13 mg/dL (9-16) 08/21/23 Sodium 138 mmol/L (135-145) 08/21/23 Potassium 4.1 mmol/L (3.3-5.1) 08/21/23 Chloride 107 mmol/L (96-108) 08/21/23 Carbon Dioxide 24 mmol/L (22-29) 08/21/23 Calcium 9.3 mg/dL (8.4-10.2) 08/21/23 AST 20 U/L (5-31) 08/21/23 ALT 18 U/L (0-31) 08/21/23 Total Protein 7.7 g/dL (6.5-8.0) 08/21/23 Albumin 4.0 g/dL (3.5-5.0) 08/21/23 PFSH Medical History (Updated 08/21/23 @ 12:34 by Rose Mary Hughes MD) No pertinent past medical history Surgical History (Updated 08/21/23 @ 12:34 by Rose Mary Hughes MD) H/O removal of neck cyst No pertinent past surgical history Family History Mother High blood pressure Alcoholism in family Rheumatoid arthritis Father Diabetes Psychiatric diagnosis Paternal Grandmother Diabetes Paternal Grandfather Cancer Other FH: mental illness Substance abuse Social History (Updated 08/21/23 @ 11:34 by Marilia Pitts) Housing: Apartment Patient Tobacco Use Status: Never used Tobacco e-Cigarette/Vaping Use: Never Used Second Hand Smoke Exposure: No service: No Current occupational status: employed Current occupation: [employer] Current occupational exposures/hazards: No Cognitive needs: No Hearing needs: No Vision needs: No Female Reproductive History Menstrual Age of Menarche: 11 Assessment & Plan Assessment & Plan (1) Obesity, morbid, BMI 40.0-49.9: Code(s): E66.01 - Morbid (severe) obesity due to excess calories Category: Medical Plan: Wt: 112 Kg ( 07/2023 ) Est kcal needs as per MSJ: 2500 (40% carb, 30% protein/fat) Est fluid needs as per 25-30 ml/d: 3300 Est prot per day as per 1 g/kg bw: 112 Recommend fiber intake : 8-10 g per day and gradually increase to 25-28 g per day for women and 35-38 g for men or as tolerated Recommend sodium intake per day : less than 2000 mg Educated patient on: ( R = reviewed V = verbalizes understanding N/R = needs review N/A = not applicable * Food sources of carbohydrate, adequate serving sizes and its role in various health conditions: R V N/R * Differences between complex carbohydrates a simple carbohydrates, role of fiber in diet: R V N/R * Lean protein sources of foods: R V NR * Differences between types of fats and role in diet (mono on saturated fat fatty acids, saturated fatty acids, trans fats): R * Food sources of sodium in salt and healthy modifications for heart health in kidney health: R V R/V * Vitamins and minerals: R V N/R * Healthy plate method concept: R * Physical activity: Benefits a precaution: R * Hydration: R Patient Instructions: Have sandwich with protein at vegetable at lunch time choosing high fiber bread, 5 times/wk HAve a meal replacement at breakfast Coding Level of Care Code Nutr Indiv Subseq (36729) Diagnoses Obesity, morbid, BMI 40.0-49.9 E66.01 Time Spent (min) 30
== END 2023-09-18 10:49 | disposition home or self-care (01) ==
PROVIDERS: PCP Nurse Practitioner Family; Visit Provider Dietitian, Registered
DX: E66.01 Morbid (severe) obesity due to excess calories (principal)

== ENCOUNTER → 2023-09-18 09:56 | Outpatient (BNVA) | payer OTHER, SELFPAY | PROVIDERS: PCP Nurse Practitioner Family; Visit Provider Dietitian, Registered | DX: E66.01 Morbid (severe) obesity due to excess calories (principal); Z68.41 Body mass index [BMI] 40.0-44.9, adult | CPT/HCPCS: 97803 ==

== ENCOUNTER 2023-10-17 12:35 | Outpatient (REF) | payer OTHER, SELFPAY ==
[2023-10-17 21:31] LABS: Cholesterol 259 mg/dL (<200); HDL Cholesterol 51 mg/dL (>40); LDL Cholesterol Calculated 189 mg/dL (<100); Triglycerides 95 mg/dL (<150)
== END 2023-10-17 12:36 | disposition home or self-care (01) ==
LOC: HO.WFDLDS 12:35
PROVIDERS: Visit Provider Nurse Practitioner Family
DX: E78.00 Pure hypercholesterolemia, unspecified (principal)
CPT/HCPCS: 36415; 80061

== ENCOUNTER 2023-10-21 11:39 | Outpatient (AMB) | payer OTHER, SELFPAY ==
--- NOTE | 2023-10-21 11:46 | MHC.PC.OV ---
Vital Signs 10/21/23 11:56 Height 5 ft 5 in Weight 247 lb 7 oz BMI 41.2 BP 130/67 Blood Pressure Location Lt brachial Position Sitting Respiration 16 Pulse 87 Pulse Source Pulse Oximeter Temp 98.2 F Temp Source Oral Pulse Oximetry (%) 94 Oxygen Delivery Method Room Air Intake Visit Reasons: 2 mos anemia, high cholesterol Intake Note: patient here for 2 month follow up. Flat Optical Element Maker Required: No Is last menstrual period known: Yes Last menstrual period: 10/14/23 Post menopausal: No Patient : No Allergies No Known Allergies Allergy (Verified 10/21/23 12:24) Medication List - Last Reconciled 10/21/23 by Candace La CNP folic acid 1 mg PO DAILY Tobacco use date assessed: 10/21/23 Dental Screening Dental Screen Date: 10/21/23 Did you have a dental visit in the last 12 months?: No Did you have a dental problem in the last 6 months where you did not have access to dental care?: No Was dental information given to patient?: Patient has dentist HPI HPI Comments History of Present Illness Details 38-year-old female presents for hypercholesterolemia and anemia follow-up She establish care with [facility] hematology/oncology on 08/24/2023 and prescribed folic acid 1mg daily which she notes that she has been taking as prescribed without adverse reactions. She has a follow-up appointment in 3 months She notes that she is currently followed by [facility] dietitian. She has been making healthy dietary choices, sleeping well, and exercising routinely She offers no complaints and denies acute symptoms at this time [facility] Medical History (Updated 08/21/23 @ 12:34 by Rose Mary Hughes MD) No pertinent past medical history Surgical History (Updated 08/21/23 @ 12:34 by Rose Mary Hughes MD) H/O removal of neck cyst No pertinent past surgical history Family History Mother High blood pressure Alcoholism in family Rheumatoid arthritis Father Diabetes Psychiatric diagnosis Paternal Grandmother Diabetes Paternal Grandfather Cancer Other FH: mental illness Substance abuse Social History (Updated 08/21/23 @ 11:34 by Marilia Pitts) Housing: Apartment Patient Tobacco Use Status: Never used Tobacco e-Cigarette/Vaping Use: Never Used Second Hand Smoke Exposure: No service: No Current occupational status: employed Current occupation: [employer] Current occupational exposures/hazards: No Cognitive needs: No Hearing needs: No Vision needs: No Female Reproductive History Menstrual Age of Menarche: 11 Date of last menstrual period: 10/14/23 Questionnaire PHQ-9 Over the last 2 weeks, how often have you been bothered by any of the following problems? 1. Little interest or pleasure in doing things: several days 2. Feeling down, depressed, or hopeless: several days 3. Trouble falling or staying asleep, or sleeping too much: not at all 4. Feeling tired or having little energy: not at all 5. Poor appetite or overeating: not at all 6. Feeling bad about yourself - or that you are a failure or have let yourself or your family down: not at all 7. Trouble concentrating on things, such as reading the newspaper or watching television: not at all 8. Moving or speaking so slowly that other people could have noticed. Or the opposite - being so fidgety or restless that you have been moving around a lot more than usual: not at all 9. Thoughts that you would be better off or of hurting yourself in some way: not at all Total score: 2 Depression Screening Interpretation: Negative Depression Screening Done: Yes 64464 - PHQ-9 Billing: Yes Source: Developed by Drs. Farhad Curtis, Franky Escalante and colleagues, with an educational areli from [employer]. Thrive Questionnaire Date Thrive assessed: 07/15/23 PAZ-7 AMB Questionnaire PAZ-7 Date PAZ - 7 assessed: 07/15/23 Source: Developed by Jessica Apple Kurt Kroenke and colleagues, with an educational areli from [employer]. Review of Systems Const Details: Const Denies chills, Denies fatigue, Denies fever(s), Denies headache(s) and Denies weakness ENT Denies dizziness and Denies headache(s) Card Denies chest pain, Denies lightheadedness, Denies dyspnea and Denies other (Palpitations) Resp Denies cough, Denies dyspnea, Denies wheezing and Denies other ( shortness of breath) GI Denies abdominal pain, Denies melena, Denies hematochezia, Denies change in bowel habits, Denies dyspepsia and Denies nausea Denies hematuria and Denies dysuria Musc Denies abnormal gait, Denies myalgias, Denies arthralgias, Denies numbness and Denies tingling Skin/Breast Denies rash, Denies unusual bruising and Denies wounds Neuro Denies abnormal gait, Denies dizziness, Denies headache(s), Denies memory loss, Denies numbness, Denies Sensory deficit (Neuro), Denies tingling and Denies weakness Psych Denies anxiety, Denies depression, Denies memory loss Endo Denies cold intolerance, Denies fatigue, Denies heat intolerance, Denies polydipsia and Denies polyuria Aller/Immun Denies wheezing Physical exam (Primary Care) Vital Signs: Last Vital Signs Temp 98.2 F 10/21/23 11:56 Pulse 87 10/21/23 11:56 Resp 16 10/21/23 11:56 BP 130/67 10/21/23 11:56 Pulse Ox 94 10/21/23 11:56 Oxygen Delivery Method Room Air 10/21/23 11:56 BMI result Body Mass Index 41.2 Tobacco/Smoking Status: Tobacco use Status Tobacco use date assessed 10/21/23 10/21/23 11:54 Patient Tobacco Use Status Never used Tobacco 10/21/23 11:48 e-Cigarette/Vaping Use Never Used 10/21/23 11:48 PHQ-9: PHQ-9 Score PHQ-9: Total score 2 10/21/23 11:57 Depression Screening Interpretation: Negative Thrive Assessment: Date of Thrive Assessment Date Thrive assessed 07/15/23 10/21/23 11:48 Const Other: General: no acute distress and well developed Nutritional Appearance: well nourished Orientation/consciousness: patient oriented x3 [facility] Head: Yes normocephalic and Yes atraumatic Eyes General: appearance normal, both eyes and all related structures Pupils: Equal, round and reactive pupils present EOM: EOMs intact bilaterally Resp Effort & Inspection: normal respiratory effort Auscultation: clear to auscultation bilaterally Cardio Rate: regular rate Rhythm: regular rhythm Heart sounds: S1 normal heart sound present, S2 normal heart sound present, no gallops, no murmurs and no rubs GI Palpation (GI): No Abdominal aortic bruit present, Soft to palpation, nontender, No hepatosplenomegaly present and No Rebound tenderness present Auscultation: normal bowel sounds General: Yes no CVA tenderness Back/Spine/Pelvis Back: no CVA tenderness Cervical Spine: cervical ROM normal and No Cervical spine tenderness Thoracic/Lumbar Spine: thoraco-lumbar ROM normal, No pain with thoraco-lumbar ROM, No thoracic spinal tenderness and No lumbar spinal tenderness Extrem General: Yes normal to inspection, No edema and No calf tenderness Skin General: warm and dry. Normal skin color. Normal skin turgor Neuro General: patient oriented x3, gait normal and no focal neuro deficit Cranial nerves: Yes Equal, round and reactive pupils present Cognition (Neuro): normal cognition Gait exam (Neuro): Normal gait present Sensory Exam: No Sensory deficit (Neuro) Psych Appearance: grossly normal Affect: normal affect Attitude: cooperative Thought process: Normal thought process present Assessment and Plan Assessment & Plan (1) Hypercholesterolemia: Code(s): E78.00 - Pure hypercholesterolemia, unspecified Plan: Recent total cholesterol and LDL levels showed increased from previous, 259 and 189 respectively She has not interested in medication treatment at this time Advised to limit foods high in saturated fat and avoid foods high in trans Routine exercise encouraged Advised to fast for 10-12 hours, may drink water only, and get blood work done before next visit Follow-up in 2 months or sooner with symptoms or concerns Verbalized understanding and agreed with the treatment plan (2) Microcytic anemia: Code(s): D50.9 - Iron deficiency anemia, unspecified Plan: Continue current treatment regimen Continue follow-up with Hematology/Oncology as planned Verbalized understanding and agreed with treatment plan Orders: Orders Lipid Panel 2 Months E78.00 - Pure hypercholesterolemia, unspecified Coding Level of Care Code Est Pt Level 4 (24287) Complex EM visit Add On G2211 Diagnoses Hypercholesterolemia E78.00 Microcytic anemia D50.9
[2023-10-21 11:56] VITALS: BP 130/67; PULSE 87; RESP 16; TEMP 36.8; O2SAT 94; BMI 41.2
== END 2023-10-21 12:34 | disposition home or self-care (01) ==
PROVIDERS: PCP Nurse Practitioner Family; Visit Provider Nurse Practitioner Family
DX: E78.00 Pure hypercholesterolemia, unspecified (principal); D50.9 Iron deficiency anemia, unspecified
CPT/HCPCS: 99214; G2211

== ENCOUNTER 2023-11-27 10:03 | Outpatient (AMB) | payer OTHER, SELFPAY ==
[2023-11-27 10:07] VITALS: BMI 40.4
--- NOTE | 2023-11-27 10:07 | A.OFFVIS_ITS ---
VS Expanded 11/27/23 10:07 Height 5 ft 5 in Weight 242 lb 15.19 oz BMI 40.4 Intake Visit Reasons: ObesityCONFIRMED Allergies No Known Allergies Allergy (Verified 10/21/23 12:24) Nutrition Presentation Details: Pt presents for MNT f/u obesity Pt reports working on balancing meals, feeling much better. Having good support from family/sister in particular. Pt reports trying new foods BS Monitoring Most Recent Diabetes Results: Cholesterol 259 mg/dL (<200) H 10/17/23 HDL Cholesterol 51 mg/dL (>40) 10/17/23 Triglycerides 95 mg/dL (<150) 10/17/23 Creatinine 0.86 mg/dL (0.5-1.4) 08/21/23 Blood Urea Nitrogen 13 mg/dL (9-16) 08/21/23 Sodium 138 mmol/L (135-145) 08/21/23 Potassium 4.1 mmol/L (3.3-5.1) 08/21/23 Chloride 107 mmol/L (96-108) 08/21/23 Carbon Dioxide 24 mmol/L (22-29) 08/21/23 Calcium 9.3 mg/dL (8.4-10.2) 08/21/23 AST 20 U/L (5-31) 08/21/23 ALT 18 U/L (0-31) 08/21/23 Total Protein 7.7 g/dL (6.5-8.0) 08/21/23 Albumin 4.0 g/dL (3.5-5.0) 08/21/23 PFSH Medical History (Updated 08/21/23 @ 12:34 by Rose Mary Hughes MD) No pertinent past medical history Surgical History (Updated 08/21/23 @ 12:34 by Rose Mary Hughes MD) H/O removal of neck cyst No pertinent past surgical history Family History Mother High blood pressure Alcoholism in family Rheumatoid arthritis Father Diabetes Psychiatric diagnosis Paternal Grandmother Diabetes Paternal Grandfather Cancer Other FH: mental illness Substance abuse Social History (Updated 08/21/23 @ 11:34 by Marilia Pitts) Housing: Apartment Patient Tobacco Use Status: Never used Tobacco e-Cigarette/Vaping Use: Never Used Second Hand Smoke Exposure: No service: No Current occupational status: employed Current occupation: [employer] Current occupational exposures/hazards: No Cognitive needs: No Hearing needs: No Vision needs: No Female Reproductive History Menstrual Age of Menarche: 11 Assessment & Plan Assessment & Plan (1) Obesity, morbid, BMI 40.0-49.9: Code(s): E66.01 - Morbid (severe) obesity due to excess calories Category: Medical Plan: Wt: 112 Kg ( 07/2023 ), 110 kg (11/2023) Est kcal needs as per MSJ: 2500 (40% carb, 30% protein/fat) Est fluid needs as per 25-30 ml/d: 3300 Est prot per day as per 1 g/kg bw: 112 Recommend fiber intake : 8-10 g per day and gradually increase to 25-28 g per day for women and 35-38 g for men or as tolerated Recommend sodium intake per day : less than 2000 mg Educated patient on: ( R = reviewed V = verbalizes understanding N/R = needs review N/A = not applicable * Food sources of carbohydrate, adequate serving sizes and its role in various health conditions: R V N/R * Differences between complex carbohydrates a simple carbohydrates, role of fiber in diet: R V N/R * Lean protein sources of foods: R * Differences between types of fats and role in diet (mono on saturated fat fatty acids, saturated fatty acids, trans fats): R * Food sources of sodium in salt and healthy modifications for heart health in kidney health: R V R/V * Vitamins and minerals: R * Healthy plate method concept: R * Physical activity: Benefits a precaution: R * Hydration: R Patient Instructions: Continue working on following healthy plate method Work on reducing on high fat foods (fried foods/pastries/ visible fat) Coding Level of Care Code Nutr Indiv Subseq (33147) Diagnoses Obesity, morbid, BMI 40.0-49.9 E66.01 Time Spent (min) 30
== END 2023-11-27 10:33 | disposition home or self-care (01) ==
PROVIDERS: PCP Nurse Practitioner Family; Visit Provider Dietitian, Registered
DX: E66.01 Morbid (severe) obesity due to excess calories (principal)

== ENCOUNTER → 2023-11-27 10:03 | Outpatient (BNVA) | payer OTHER, SELFPAY | PROVIDERS: PCP Nurse Practitioner Family; Visit Provider Dietitian, Registered | DX: E66.01 Morbid (severe) obesity due to excess calories (principal); Z68.41 Body mass index [BMI] 40.0-44.9, adult | CPT/HCPCS: 97803 ==

== ENCOUNTER 2024-01-02 13:21 | Outpatient (REF) | payer OTHER, SELFPAY ==
[2024-01-03 14:21] LABS: CT PCR NOT DETECTED (Not Detect.); NG PCR NOT DETECTED (Not Detect.)
[2024-01-04 08:57] LABS: Bacterial Vaginosis PCR POSITIVE (Negative); Candida Group PCR NOT DETECTED (Not Detect); Candida glab krusei PCR NOT DETECTED (Not Detect); Trichomonas vaginalis PCR NOT DETECTED (Not Detect)
== END 2024-01-02 13:22 | disposition home or self-care (01) ==
LOC: HO.LAB 13:21
PROVIDERS: PCP Nurse Practitioner Family; Visit Provider Advanced Practice Midwife
DX: N89.8 Other specified noninflammatory disorders of vagina (principal); Z20.2 Contact with and (suspected) exposure to infections with a predominantly sexual mode of transmission
CPT/HCPCS: 0352U; 87491; 87591

== ENCOUNTER 2024-01-02 13:21 | Outpatient (AMB) | payer OTHER, SELFPAY ==
[2024-01-02 13:29] VITALS: BP 128/78; BMI 40.4
--- NOTE | 2024-01-02 13:29 | MHC.OFFVIS ---
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 She had her 1st bird sitter exam and 1st Pap smear done last year she found it dramatic she is sexually active with the same partner who is her only partner in life she does not think she had the HPV vaccine. She had high cholesterol found on her lab work with her primary and she is working to achieve healthier diet and is working with a meteorological equipment repairer at the hospital to work on meal planning and is having sample diet of a history chicken for her protein with boiled sweet potatoes and added other vegetables and protein shake during the day. She is getting her exercise at [employer] and she is working on body read mottling with weights and the stair climber and is working hard at this she is starting to see some success for herself. 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 She is intent on losing the weight and getting healthier through her own efforts and does not want a quick fix. She is not concerned about STIs but would like checking. [facility] Medical History No pertinent past medical history Surgical History H/O removal of neck cyst No pertinent past surgical history Family History Mother High blood pressure Alcoholism in family Rheumatoid arthritis Father Diabetes Psychiatric diagnosis Paternal Grandmother Diabetes Paternal Grandfather Cancer Other FH: mental illness Substance abuse Social History Housing: Apartment Patient Tobacco Use Status: Never used Tobacco e-Cigarette/Vaping Use: Never Used Second Hand Smoke Exposure: No service: No Current occupational status: employed Current occupation: [employer] Current occupational exposures/hazards: No Cognitive needs: No Hearing needs: No Vision needs: No Female Reproductive History Menstrual Age of Menarche: 11 Date of last menstrual period: 12/27/23 control method: none Total pregnancies: 0 Date of last pap smear: 11/27/22 (negative) Physical Exam Vital Signs: Last Vital Signs BP 128/78 01/02/24 13:29 BMI result Body Mass Index 40.4 Const General: healthy appearing, comfortable, no acute distress, well developed and alert Nutritional Appearance: average body habitus and obese Orientation/consciousness: patient oriented x3 Limitations: no limitations HEENT Head: Yes normocephalic Neck Neck: Yes normal visual inspection Chest Other: Breasts are pendulous she does experience backaches from her heavy breasts. Chest palpation & inspection: normal inspection of the chest Breast/axilla inspection: normal inspection of the breasts and normal inspection of the axillae Breast/axilla palpation: normal palpation of the breasts and normal palpation of the axillae Resp Effort & Inspection: normal respiratory effort GI Inspection: Yes normal to inspection, No Abdominal wall edema and No distended Palpation (GI): Soft to palpation and nontender Other: Healthy normal external exam vagina is pink and moist mucosa healthy scant clear discharge consistent with early part of cycle with no abnormal discharge appreciated. Fleeting glimpse of cervix appears pink and healthy healthy-appearing mucosa limited bimanual exam secondary to clenching and adipose tissue but no pathology evident or palpable. Discussed practicing relaxation and also tightening of vaginal muscles to come under her control more. General: Yes bladder normal to palpation External Female Exam: normal external appearance and normal appearance of the urethra Speculum Exam - Vagina: normal appearance of the vagina, normal palpation and normal vaginal discharge Speculum Exam - Cervix: normal appearance of the cervix, normal palpation and nontender Bimanual exam- vagina & uterus: normal bimanual exam, normal palpation, uterine size normal, bladder normal to palpation, consistency normal, normal palpation, uterine mobility normal, uterine shape normal, No Cervical tenderness present, non-tender and no cervical motion tenderness Bimanual Exam- Adnexa, other: normal adnexae, no masses, normal and No adnexal tenderness Neuro General: patient oriented x3 Results Reviewed Results Reviewed: Name: Pratima Herron Age/Sex: 37/F Attending: Aleksandra Bernal CNM : 1985 Submitted by: Aleksandra Bernal CNM Copies to: MR #: [id number] Status: DEP REF Collected: 11/26/22 Location: [facility] Received: 11/27/22 Interpretation Satisfactory for evaluation. No endocervical cells seen. Coccobacilli consistent with shift in vaginal va. Hyperkeratosis noted. Negative for intraepithelial lesion or malignancy. HPV mRNA E6/E7: NOT DETECTED This assay detects E6/E7 viral messenger RNA (mRNA) from 14 high-risk HPV types (16, 18, 31, 33, 35, 39, 45, 51, 52, 56, 58, 59, 66, 68) HPV testing performed by [facility], [place], [place]. See reference laboratory pion of the EMR for entire report. Clinical Information LMP:11/02/22 Previous PAP test:Unknown date, WNL Material Received ThinPrep-Cervical Electronically Signed By: DAISY Ramirez (ASCP) 12/09/22 1532 The Pap Test is a screening procedure with the inherent possibility of both false negative and false positive results. Results should be interpreted in the context of historic and current clinical findings. Reliability of the Pap Test is enhanced by performing the test on a regular repetitive basis. Patient: Pratima Herron Age/Sex: 37/F MR#: [id number] Page 1 of 1 Assessment & Plan Assessment & Plan (1) Pap smear for cervical cancer screening: Comment: First Pap in 1st pelvic exam 11/26/2022. Recommend that patient consider getting Gardasil vaccine series; Pap is negative with negative HPV. Code(s): Z12.4 - Encounter for screening for malignant neoplasm of cervix Category: Medical (2) Well woman exam with routine gynecological exam: Code(s): Z01.419 - Encounter for gynecological examination (general) (routine) without abnormal findings Category: Medical (3) Obesity, morbid, BMI 40.0-49.9: Code(s): E66.01 - Morbid (severe) obesity due to excess calories Category: Medical (4) Screen for sexually transmitted diseases: Code(s): Z11.3 - Encounter for screening for infections with a predominantly sexual mode of transmission Category: Medical (5) Family planning education, guidance, and counseling: Code(s): Z30.09 - Encounter for other general counseling and advice on contraception Category: Medical Plan -----Discussed in this visit the following: healthy balanced diet, regular and consistent exercise, getting recommended health screens, doing the best she can for her particular health concerns, kegel exercises, pap smear screening and followup recommendations, mammography screening and SBE, normal changes in cycles in her life stage--- . Discussed that she will be starting mammograms at age 41. Discussed her intention to get healthier before considering . Discussed that in her age group she would be well advised to start care if she did become from the very start at [facility] of the [facility] as initiating care here results in delay transfer until it is then too late to obtain early testing that is important and timely. Reviewed her efforts to lose weight see HPI for the details congratulated on her determine the nation and efforts. Discussed that it is easier to do now than when she gets older and would be highly recommended before a . She is on folic acid currently she is endeavoring to lower her cholesterol by diet changes and she told me that her fasting blood sugars were okay.. She is attuned to the changes she is trying to make and is aware the role of getting into healthy habits and is working hard on it. Discussed considering getting the HPV vaccine and that she probably more easily get it at 1 of the local pharmacies then scheduling appointments in our office at the hospital. She was interested in getting blood work for STIs today so I have ordered those she still need some fasting labs for her primary but she will get those when she has been fasting.. . exam was somewhat limited by vaginal clenching and patient fear of exams. Only a fleeting glimpse was obtained of her cervix however it was reassuring that it was healthy pink mucosa and her vaginal discharge appeared clear and healthy appearing consistent with follicular phase post menses and I did discuss the entire cycle with her Orders: Orders Hepatitis B Surface Antigen Today E66.01 - Morbid (severe) obesity due to excess calories, Z01.419 - Encounter for gynecological examination (general) (routine) without abnormal findings, Z11.3 - Encounter for screening for infections with a predominantly sexual mode of transmission, Z12.4 - Encounter for screening for malignant neoplasm of cervix HIV Ab/Ag Today E66.01 - Morbid (severe) obesity due to excess calories, Z01.419 - Encounter for gynecological examination (general) (routine) without abnormal findings, Z11.3 - Encounter for screening for infections with a predominantly sexual mode of transmission, Z12.4 - Encounter for screening for malignant neoplasm of cervix Syphilis Screen Today E66.01 - Morbid (severe) obesity due to excess calories, Z01.419 - Encounter for gynecological examination (general) (routine) without abnormal findings, Z11.3 - Encounter for screening for infections with a predominantly sexual mode of transmission, Z12.4 - Encounter for screening for malignant neoplasm of cervix Hepatitis C Antibody Today E66.01 - Morbid (severe) obesity due to excess calories, Z01.419 - Encounter for gynecological examination (general) (routine) without abnormal findings, Z11.3 - Encounter for screening for infections with a predominantly sexual mode of transmission, Z12.4 - Encounter for screening for malignant neoplasm of cervix Coding Level of Care Code Est Pt Prev Care 18-39y([id number]) Diagnoses Pap smear for cervical cancer screening Z12.4 Well woman exam with routine gynecological exam Z01.419 Obesity, morbid, BMI 40.0-49.9 E66.01 Screen for sexually transmitted diseases Z11.3 Family planning education, guidance, and counseling Z30.09
== END 2024-01-02 14:56 | disposition home or self-care (01) ==
PROVIDERS: PCP Nurse Practitioner Family; Visit Provider Advanced Practice Midwife
DX: Z12.4 Encounter for screening for malignant neoplasm of cervix (principal); Z01.419 Encounter for gynecological examination (general) (routine) without abnormal findings; E66.01 Morbid (severe) obesity due to excess calories; Z11.3 Encounter for screening for infections with a predominantly sexual mode of transmission; Z30.09 Encounter for other general counseling and advice on contraception
CPT/HCPCS: 99395

== ENCOUNTER 2024-01-02 14:33 | Outpatient (REF) | payer OTHER, SELFPAY ==
[2024-01-02 16:10] LABS: MANUAL DIFF FLAG NO
[2024-01-02 16:14] LABS: Basophils Percent Auto 0.5 % (0-2); Eosinophils Absolute Auto 0.1 X10*3/uL (0.0-0.4); Eosinophils Percent Auto 1.6 % (0-4); Hematocrit 33.9 % (37.0-47.0); Hemoglobin 11.1 g/dl (12.0-16.0); Imm Gran Abs Auto 0.02 X10*3/uL (0.00-0.03); Imm Gran Pct Auto 0.4 % (0.0-0.4); Lymphocytes Absolute Auto 2.3 X10*3/uL (1.2-4.9); Lymphocytes Percent Auto 40.5 % (20-40); Mean Corpuscular HGB Conc 32.7 g/dl (31.0-35.0); Mean Corpuscular Hemoglobin 24.1 pg (27.0-33.0); Mean Corpuscular Volume 73.7 fL (80.0-98.0); Mean Platelet Volume 9.6 fL (9.4-12.3); Monocytes Absolute Auto 0.4 X10*3/uL (0.1-1.2); Monocytes Percent Auto 7.7 % (2-11); Neutrophils Absolute Auto 2.8 x10*3/uL (2.0-8.3); Neutrophils Percent Auto 49.3 % (45-73); Platelet Count 313 X10*3/uL (160-400); Red Cell Distribution Width 17.9 % (11.0-16.0); White Blood Count 5.6 X10*3/uL (4.8-10.8)
[2024-01-02 17:54] LABS: Alanine Aminotransferase 13 U/L (0-31); Albumin Level 4.2 g/dL (3.5-5.0); Alkaline Phosphatase 51 U/L (39-117); Anion Gap 13 (12-20); Aspartate Amino Transferase 18 U/L (5-31); Bilirubin Total 0.2 mg/dL (0.0-1.0); Blood Urea Nitrogen 14 mg/dL (9-16); Calcium 9.2 mg/dL (8.4-10.2); Carbon Dioxide 22 mmol/L (22-29); Chloride 105 mmol/L (96-108); Cholesterol 230 mg/dL (<200); Estimated Glomerular Filt Rate 60; Glucose Random 78 mg/dL (60-115); HDL Cholesterol 45 mg/dL (>40); LDL Cholesterol Calculated 162 mg/dL (<100); Potassium 4.1 mmol/L (3.3-5.1); Sodium 136 mmol/L (135-145); Total Protein 8.1 g/dL (6.5-8.0); Triglycerides 115 mg/dL (<150)
[2024-01-02 18:01] LABS: Ferritin 13 ng/mL (10-122)
[2024-01-05 04:09] LABS: Syphilis Screen Nonreactive (Nonreactive)
[2024-01-05 04:35] LABS: HBsAGNum1 0.28 S/CO (0.00-0.99); HIV AB/AG Nonreactive (Nonreactive); HIV Num 1 0.05 S/CO (0.00-0.99); Hepatitis B Surface Antigen Negative (Negative); ~Hepatitis C Antibody Nonreactive (Nonreactive)
== END 2024-01-02 14:34 | disposition home or self-care (01) ==
LOC: HO.HHCL 14:33
PROVIDERS: Internal Medicine Medical Oncology; Referring Provider Nurse Practitioner Family; Visit Provider Advanced Practice Midwife
DX: Z01.419 Encounter for gynecological examination (general) (routine) without abnormal findings (principal); D50.9 Iron deficiency anemia, unspecified; E78.00 Pure hypercholesterolemia, unspecified; Z11.3 Encounter for screening for infections with a predominantly sexual mode of transmission; E66.01 Morbid (severe) obesity due to excess calories; Z12.4 Encounter for screening for malignant neoplasm of cervix
CPT/HCPCS: 36415; 80053; 80061; 82728; 85025; 86780; 86803; 87340; 87389; 99395

== ENCOUNTER 2024-01-30 09:15 | Outpatient (REF) | payer OTHER, SELFPAY ==
[2024-01-30 12:29] LABS: Cholesterol 212 mg/dL (<200); HDL Cholesterol 45 mg/dL (>40); LDL Cholesterol Calculated 153 mg/dL (<100); Triglycerides 70 mg/dL (<150)
== END 2024-01-30 09:16 | disposition home or self-care (01) ==
LOC: HO.WFDLDS 09:15
PROVIDERS: Visit Provider Nurse Practitioner Family
DX: E78.00 Pure hypercholesterolemia, unspecified (principal)
CPT/HCPCS: 36415; 80061

== ENCOUNTER 2024-02-02 10:57 | Outpatient (AMB) | payer OTHER, SELFPAY ==
--- NOTE | 2024-02-02 11:02 | A.OFFPC_ITS ---
Vital Signs 02/02/24 11:27 Height 5 ft 5 in Weight 246 lb 4 oz BMI 41.0 BP 138/80 Blood Pressure Location Lt brachial Position Sitting Respiration 16 Pulse 80 Pulse Source Pulse Oximeter Temp 98.8 F Temp Source Oral Pulse Oximetry (%) 98 Oxygen Delivery Method Room Air Intake Visit Reasons: 2 mos hypercholesterolemia Intake Note: patient here for 2 month follow up on hypercholesterolemia. 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: No Is last menstrual period known: Yes Last menstrual period: 01/20/24 Post menopausal: No Patient : No Allergies No Known Allergies Allergy (Verified 02/02/24 11:46) Medication List - Last Reconciled 02/02/24 by Candace La CNP folic acid 1 mg PO DAILY Tobacco use date assessed: 02/02/24 Dental Screening Dental Screen Date: 02/02/24 Did you have a dental visit in the last 12 months?: No Did you have a dental problem in the last 6 months where you did not have access to dental care?: No Was dental information given to patient?: Patient declined HPI HPI Comments History of Present Illness Details 38-year-old female presents for hypercho lesterolemia follow-up She admits to making healthy lifestyle changes She offers no complaints and denies acute symptoms at this time [facility] Medical History No pertinent past medical history Surgical History H/O removal of neck cyst No pertinent past surgical history Family History Mother High blood pressure Alcoholism in family Rheumatoid arthritis Father Diabetes Psychiatric diagnosis Paternal Grandmother Diabetes Paternal Grandfather Cancer Other FH: mental illness Substance abuse Social History Housing: Apartment Patient Tobacco Use Status: Never used Tobacco e-Cigarette/Vaping Use: Never Used Second Hand Smoke Exposure: No service: No Current occupational status: employed Current occupation: [employer] Current occupational exposures/hazards: No Cognitive needs: No Hearing needs: No Vision needs: No Female Reproductive History Menstrual Age of Menarche: 11 Date of last menstrual period: 01/20/24 Questionnaire PHQ-9 Over the last 2 weeks, how often have you been bothered by any of the following problems? 1. Little interest or pleasure in doing things: not at all 2. Feeling down, depressed, or hopeless: not at all 3. Trouble falling or staying asleep, or sleeping too much: not at all 4. Feeling tired or having little energy: not at all 5. Poor appetite or overeating: not at all 6. Feeling bad about yourself - or that you are a failure or have let yourself or your family down: not at all 7. Trouble concentrating on things, such as reading the newspaper or watching television: not at all 8. Moving or speaking so slowly that other people could have noticed. Or the opposite - being so fidgety or restless that you have been moving around a lot more than usual: not at all 9. Thoughts that you would be better off or of hurting yourself in some way: not at all Total score: 0 93223 - PHQ-9 Billing: Yes Source: Developed by Drs. Farhad Curtis, Jessica Phillips, Franky Del Angel and colleagues, with an educational areli from [employer] Thrive Questionnaire Date Thrive assessed: 07/15/23 I am a: Patient What is your living situation today?: I have a steady place to live Within the past 12 months, did the food you bought not last and you didn't have the money to get more?: Never true Within the past 12 months, did you worry whether your food would run out before you got money to buy more?: Never true Do you have trouble paying for medicines?: No Do you have trouble getting transportation to medical appointments?: No Do you have trouble paying your heating and electricity bill?: No Do you have trouble taking care of your child, family member or friend?: No Do you have trouble with day-to-day activities such as bathing, preparing meals, shopping, managing finances, etc.?: No Are you currently unemployed and looking for a job?: No Are you interested in more education?: No THRIVE Score: 0 AUDIT C Alcohol Use Questionnaire (AUDIT-C) 1. How often do you have a drink containing alcohol?: Monthly or less 2. How many drinks containing alcohol do you have on a typical day when you are drinking?: 1 or 2 3. How often do you have six or more drinks on one occasion?: Never Total Score: 1 Score Reviewed/Action Taken: Yes PAZ-7 AMB Questionnaire PAZ-7 Date PAZ - 7 assessed: 07/15/23 Feeling nervous, anxious, or on edge: 1 = Several days Not being able to stop or control worryin = Several days Worrying too much about different things: 1 = Several days Trouble relaxin = Not at all Being so restless that it is hard to sit still: 0 = Not at all Becoming easily annoyed or irritable: 0 = Not at all Feeling afraid as if something awful might happen: 1 = Several days Total PAZ-7 score (0-4 normal; 5-9 mild; 10-14 moderate; 15-21 severe): 4 Source: Developed by Drs. Farhad Curtis, Jessica Phillips, Franky Del Angel and colleagues, with an educational areli from [employer] PAZ-7 Assessment Billing PAZ-7 Assessment Tool: PAZ-7 Assessment 34031 Review of Systems Const Details: Const Denies chills, Denies fatigue, Denies fever(s), Denies headache(s) and Denies weakness ENT Denies dizziness and Denies headache(s) Card Denies chest pain, Denies lightheadedness, Denies dyspnea and Denies other (Palpitations) Resp Denies cough, Denies dyspnea, Denies wheezing and Denies other ( shortness of breath) GI Denies abdominal pain, Denies melena, Denies hematochezia, Denies change in bowel habits, Denies dyspepsia and Denies nausea Denies hematuria and Denies dysuria Musc Denies abnormal gait, Denies myalgias, Denies arthralgias, Denies numbness and Denies tingling Skin/Breast Denies rash, Denies unusual bruising and Denies wounds Neuro Denies abnormal gait, Denies dizziness, Denies headache(s), Denies memory loss, Denies numbness, Denies Sensory deficit (Neuro), Denies tingling and Denies weakness Psych Denies anxiety, Denies depression, Denies memory loss Endo Denies cold intolerance, Denies fatigue, Denies heat intolerance, Denies polydipsia and Denies polyuria Aller/Immun Denies wheezing Physical exam (Primary Care) Vital Signs: Last Vital Signs Temp 98.8 F 02/02/24 11:27 Pulse 80 02/02/24 11:27 Resp 16 02/02/24 11:27 BP 138/80 02/02/24 11:27 Pulse Ox 98 02/02/24 11:27 Oxygen Delivery Method Room Air 02/02/24 11:27 BMI result Body Mass Index 41.0 Tobacco/Smoking Status: Tobacco use Status Tobacco use date assessed 02/02/24 02/02/24 11:26 Patient Tobacco Use Status Never used Tobacco 02/02/24 11:05 e-Cigarette/Vaping Use Never Used 02/02/24 11:05 PHQ-9: PHQ-9 Score PHQ-9: Total score 0 02/02/24 11:26 Thrive Assessment: Date of Thrive Assessment Date Thrive assessed 07/15/23 02/02/24 11:05 Const Other: General: no acute distress and well developed Nutritional Appearance: well nourished Orientation/consciousness: patient oriented x3 HENMT Head: Yes normocephalic and Yes atraumatic Eyes General: appearance normal, both eyes and all related structures Pupils: Equal, round and reactive pupils present EOM: EOMs intact bilaterally Resp Effort & Inspection: normal respiratory effort Auscultation: clear to auscultation bilaterally Cardio Rate: regular rate Rhythm: regular rhythm Heart sounds: S1 normal heart sound present, S2 normal heart sound present, no gallops, no murmurs and no rubs GI Palpation (GI): No Abdominal aortic bruit present, Soft to palpation, nontender, No hepatosplenomegaly present and No Rebound tenderness present Auscultation: normal bowel sounds General: Yes no CVA tenderness Back/Spine/Pelvis Back: no CVA tenderness Extrem General: Yes normal to inspection, No edema and No calf tenderness Skin General: warm and dry. Normal skin color. Normal skin turgor Neuro General: patient oriented x3, gait normal and no focal neuro deficit Cranial nerves: Yes Equal, round and reactive pupils present Cognition (Neuro): normal cognition Gait exam (Neuro): Normal gait present Sensory Exam: No Sensory deficit (Neuro) Psych Appearance: grossly normal Affect: normal affect Attitude: cooperative Thought process: Normal thought process present Coding Level of Care Code Est Pt Level 3 (19714) Diagnoses Hypercholesterolemia E78.00 Anemia D64.9 Additional Codes PAZ-7 Assessment Billing - PAZ-7 Assessment Tool: PAZ-7 Assessment 10455 ([id number]) Assessment & Plan Assessment & Plan (1) Hypercholesterolemia: Code(s): E78.00 - Pure hypercholesterolemia, unspecified Category: Medical Plan: Recent total cholesterol and LDL levels a slightly elevated but significantly improved, 212 and 153 respectively Advised to limit foods high in saturated fat and avoid foods high in trans fat Routine exercise encouraged Advised to fast for 10-12 hours, may drink water only, and get lipid panel blood work done 2-3 days before her next visit Follow-up in 3 months Verbalized understanding and agreed with the treatment plan (2) Anemia: Code(s): D64.9 - Anemia, unspecified Category: Medical Plan: She notes that her ferrous sulfate was discontinued by hematology. She was prescribed folic acid 1 mg daily. She took the medication for 1 month and forget to take it afterwards. Her last hematology appointment was in July; she was advised to follow-up in 3 months Recent H&H level is 11.1/33.9 Encouraged to resume taking folic acid as prescribed and schedule an appointment with Hematology/Oncology as planned Verbalized understanding and agreed with the treatment plan Orders: Orders Lipid Panel 3 Months E78.00 - Pure hypercholesterolemia, unspecified
[2024-02-02 11:27] VITALS: BP 138/80; PULSE 80; RESP 16; TEMP 37.1; O2SAT 98; BMI 41.0
== END 2024-02-02 11:53 | disposition home or self-care (01) ==
LOC: HO.HMCFM 10:58
PROVIDERS: PCP Nurse Practitioner Family; Visit Provider Nurse Practitioner Family
DX: E78.00 Pure hypercholesterolemia, unspecified (principal); D64.9 Anemia, unspecified

== ENCOUNTER → 2024-02-02 10:57 | Outpatient (BNVA) | payer OTHER, SELFPAY | PROVIDERS: PCP Nurse Practitioner Family; Visit Provider Nurse Practitioner Family | DX: E78.00 Pure hypercholesterolemia, unspecified (principal); D64.9 Anemia, unspecified | CPT/HCPCS: 96127; 99212 ==

== ENCOUNTER 2024-03-16 10:35 | Outpatient (AMB) | payer OTHER, SELFPAY ==
[2024-03-16 10:46] VITALS: BMI 41.1
--- NOTE | 2024-03-16 10:46 | A.OFFVIS_ITS ---
VS Expanded 03/16/24 10:46 Height 5 ft 5 in Weight 247 lb 2.211 oz BMI 41.1 Intake Visit Reasons: Obesity/Confirmed Allergies No Known Allergies Allergy (Verified 02/02/24 11:46) Nutrition Presentation Details: Pt presents for MNT f/u for hyperlipidemia Pt report working on low fat options on and off Eats out most days of the week,working on making lower fat option choices. BS Monitoring Most Recent Diabetes Results: Cholesterol 212 mg/dL (<200) H 01/30/24 HDL Cholesterol 45 mg/dL (>40) 01/30/24 Triglycerides 70 mg/dL (<150) 01/30/24 Creatinine 1.04 mg/dL (0.5-1.4) 01/02/24 Blood Urea Nitrogen 14 mg/dL (9-16) 01/02/24 Sodium 136 mmol/L (135-145) 01/02/24 Potassium 4.1 mmol/L (3.3-5.1) 01/02/24 Chloride 105 mmol/L (96-108) 01/02/24 Carbon Dioxide 22 mmol/L (22-29) 01/02/24 Calcium 9.2 mg/dL (8.4-10.2) 01/02/24 AST 18 U/L (5-31) 01/02/24 ALT 13 U/L (0-31) 01/02/24 Total Protein 8.1 g/dL (6.5-8.0) H 01/02/24 Albumin 4.2 g/dL (3.5-5.0) 01/02/24 PFSH Medical History No pertinent past medical history Surgical History H/O removal of neck cyst No pertinent past surgical history Family History Mother High blood pressure Alcoholism in family Rheumatoid arthritis Father Diabetes Psychiatric diagnosis Paternal Grandmother Diabetes Paternal Grandfather Cancer Other FH: mental illness Substance abuse Social History Housing: Apartment Patient Tobacco Use Status: Never used Tobacco e-Cigarette/Vaping Use: Never Used Second Hand Smoke Exposure: No service: No Current occupational status: employed Current occupation: [employer] Current occupational exposures/hazards: No Cognitive needs: No Hearing needs: No Vision needs: No Female Reproductive History Menstrual Age of Menarche: 11 Assessment & Plan Assessment & Plan (1) Obesity, morbid, BMI 40.0-49.9: Code(s): E66.01 - Morbid (severe) obesity due to excess calories Category: Medical Plan: Lab: Chol (from 259 in September to 212 inNov, LDL 189 in September to 153 in Jan Wt: 112 Kg ( 07/2023 ), 110 kg (11/2023), 112 (03/23) Est kcal needs as per MSJ: 2500 (40% carb, 30% protein/fat) Est fluid needs as per 25-30 ml/d: 3300 Est prot per day as per 1 g/kg bw: 112 Recommend fiber intake : 8-10 g per day and gradually increase to 25-28 g per day for women and 35-38 g for men or as tolerated Recommend sodium intake per day : less than 2000 mg Educated patient on: ( R = reviewed V = verbalizes understanding N/R = needs review N/A = not applicable * Food sources of carbohydrate, adequate serving sizes and its role in various health conditions: R V N/R * Differences between complex carbohydrates a simple carbohydrates, role of fiber in diet: R * Lean protein sources of foods: R * Differences between types of fats and role in diet (mono on saturated fat fatty acids, saturated fatty acids, trans fats): R * Food sources of sodium in salt and healthy modifications for heart health in kidney health: R V R/V * Vitamins and minerals: R * Healthy plate method concept: R * Physical activity: Benefits a precaution: R * Hydration: R Patient Instructions: Choose baked seafood when eating out and include fiber rich foods (sweet potato, brussel sprouts, salads) keep hydrated by having water with meals and snacks Walk 30 minutes 3 times a week Coding Level of Care Code Nutr Indiv Subseq (05162) Diagnoses Obesity, morbid, BMI 40.0-49.9 E66.01 Time Spent (min) 30
--- OUTSIDE RECORDS SUMMARY | 2024-03-16 10:46 | XMS_ITS | Data Portability ---
Author Organization [facility] [address] Address [address] [place] [address] Assessment No assessment recorded. Plan of Treatment Reminders Order Date Submit Date Provider Last Modified By Organization Details Last Modified Time Details Appointments None recorded. Lab None recorded. Referral None recorded. Procedures None recorded. Surgeries None recorded. Imaging None recorded. Medication Orders cyclobenzap rine 10 mg tablet 2023 024 [id number], [address] [place], [address], 12:42:11 naproxen 500 mg tablet 2023 024 [id number], [address] [place], [address], 12:42:11 Patient TargetsNo targets recorded. Patient Instructions Encounter Date Encounter Id Patient Instructions Last Modified By Organization Details Last Modified Time 11/02/2023 [id number] neck pain: care instructions [email or web address] Not available 11/02/2023 12:42:09 Reason for Referral None Reported. Problems Name Problem SNOMED Code Status Onset Date Resolution Date Notes Provider Name and Address Organization Details Recorded Time Anemia 064048108 Active 2023 [facility] 12:25:13 Muscle spasm of cervical muscle of neck 429190867604 Active 2023 Martell Michael NP [address], [place], [address] , [facility] 12:41:22 Problem Notes None recorded. Medical Equipment None Reported. Allergies No known drug allergies Medications Name Sig Start Date Stop Date Status Note LastModified by Organization Details LastModified Time cyclobenzap rine 10 mg tablet TAKE 1 TABLET BY MOUTH AT BEDTIME FOR 10 DAYS NEEDED FOR MUSCLE SPASM active Not Available Not Available No t Available metronidazo le 500 mg tablet TAKE 1 TABLET BY MOUTH TWICE A DAY FOR 7 DAYS 11/01 completed Not Available Not Available Not Available folic acid 1 mg tablet TAKE 1 TABLET BY MOUTH DAILY active Not Available Not Available No t Available fluticasone propionate 50 mcg/actuati on nasal spray,suspe nsion USE 1 SPRAY INTRANASA LLY 2 TIMES A DAY FOR 30 DAYS ADMINISTE R INTO EACH NOSTRIL 11/01 completed Not Available Not Available Not Available naproxen 500 mg tablet TAKE 1 TABLET BY MOUTH TWICE A DAY WITH MEALS FOR PAIN FOR 10 DAYS active Not Available Not Available No t Available cyclobenzap rine active Not Available Not Available Not Available Vitals Date Recorded Body height Body mass index (BMI) Body weight Respiratory rate Body temperature Oxygen saturation Oxygen saturation in Arterial blood by Pulse oximetry Heart rate Systolic blood pressure Diastolic blood pressure Provider Name and Address Organization Details Last Updated DateTime 165.1 cm 40.4 kg/m2 794650. 95 g 18 /min 96.8 [degF] 100 % 100 % 91 /min 132 mm[Hg] 86 mm[Hg] Aida Daigle [facility] 12:28:58 Social History Question Answer Notes LastModified by Organizat ion Details LastModified Time Tobacco Smoking Status Never Smoker Aida schmidt [email or web address] 11/02/2023 12:25:41 What Is Your Level Of Alcohol Consumption? Occasional Information not available 11/02/2023 How Many Times Per Week Do You Consume Alcohol? 1-2 Times Per Week Information not available 11/02/2023 Have You Had A Flu Shot This Season? No Information not available 11/02/2023 If No, Would You Like A Flu Shot Today? No Information not available 11/02/2023 Do You Use Any Illicit Or Recreational Drugs? No Information not available 11/02/2023 Have You Recently Traveled Abroad? No Information not available 11/02/2023 Do You Or Have You Ever Used Any Other Forms Of Tobacco Or Nicotine? No Information not available 11/02/2023 Sex: Unknown Functional Status None recorded. Mental Status None recorded. Family History Relationship Description Onset Age of this Age Resolved Age Notes LastModified by Organization Details LastModified Time Father No current problems or disability Not available 06/2023 12:25:16 Mother No current problems or disability Not available 06/2023 12:25:16 Medical History No medical history recorded. Gynecological History Statement/Question Response Date of LMP 10/13/2023 Is there any chance of ? No Obstetrics History GPAL:G 0 P 0 0 0 0 Past Encounters Encounter ID Performer Location Encounter Start Date Encounter Closed Date Diagnosis/Indication Diagnosis SNOMED-CT Code Diagnosis ICD10 [place] [id number] [place] [address] [address] 11/02/2023 12:16:34 11/02/2023 12:45:09 Muscle spasm of cervical muscle of neck 1828284061 04 M62.838 Health Concerns Section Related Observation LastModified by Organization Detai ls LastModified Time None Recorded Concern Status LastModified by Organization Details LastModified Time None Recorded Advance Directives Directive None Recorded Payers Encounter Date Sequence Insurance Name Policy Number Policy Amaya Covered Member ID Amaya Member ID Guarantor Name 11/02/2023 1 [facility] [id number] Pratima Herron [id number] Pratima Herron Notes Date Note Type Note Provider Name and Address Organization Details Recorded Time 11/02/2023 text/html Neck UCReported bypatient.Notes:p ain in neck right posterior aspect. painful range of motion. no prior history of arthritis or cervical trauma. no numbness or tingling in bilateral upper or lower extremities. Denies any fever or fever with chills. Denies any SOB or chest pain. Martell Michael NP [address] [place], [address], [place] - [facility] 11/02/2023 12:44:16 OBGyn Episode No OBEpisode recorded.
== END 2024-03-16 11:20 | disposition home or self-care (01) ==
PROVIDERS: PCP Nurse Practitioner Family; Visit Provider Dietitian, Registered
DX: E66.01 Morbid (severe) obesity due to excess calories (principal)

== ENCOUNTER → 2024-03-16 10:35 | Outpatient (BNVA) | payer OTHER, SELFPAY | PROVIDERS: PCP Nurse Practitioner Family; Visit Provider Dietitian, Registered | DX: E66.01 Morbid (severe) obesity due to excess calories (principal); Z68.41 Body mass index [BMI] 40.0-44.9, adult | CPT/HCPCS: 97803 ==

== ENCOUNTER 2024-05-11 10:06 | Outpatient (AMB) | payer OTHER, SELFPAY ==
--- NOTE | 2024-05-11 10:18 | A.OFFVIS_ITS ---
VS Expanded 05/11/24 10:19 Height 5 ft 5 in Weight 246 lb 11.156 oz BMI 41.0 Intake Visit Reasons: Obesity Allergies No Known Allergies Allergy (Verified 02/02/24 11:46) Nutrition Presentation Details: Pt presents for MNT f/u for obesity, hyperlipidemia Pt reports doing well, working on including physical activity 5 days a week , enjoys it - exercise routine interrupted this month d/t change in schedule -working on meal schedules to help with consistency BS Monitoring Most Recent Diabetes Results: Cholesterol 212 mg/dL (<200) H 01/30/24 HDL Cholesterol 45 mg/dL (>40) 01/30/24 Triglycerides 70 mg/dL (<150) 01/30/24 Creatinine 1.04 mg/dL (0.5-1.4) 01/02/24 Blood Urea Nitrogen 14 mg/dL (9-16) 01/02/24 Sodium 136 mmol/L (135-145) 01/02/24 Potassium 4.1 mmol/L (3.3-5.1) 01/02/24 Chloride 105 mmol/L (96-108) 01/02/24 Carbon Dioxide 22 mmol/L (22-29) 01/02/24 Calcium 9.2 mg/dL (8.4-10.2) 01/02/24 AST 18 U/L (5-31) 01/02/24 ALT 13 U/L (0-31) 01/02/24 Total Protein 8.1 g/dL (6.5-8.0) H 01/02/24 Albumin 4.2 g/dL (3.5-5.0) 01/02/24 [facility] Medical History No pertinent past medical history Surgical History H/O removal of neck cyst No pertinent past surgical history Family History Mother High blood pressure Alcoholism in family Rheumatoid arthritis Father Diabetes Psychiatric diagnosis Paternal Grandmother Diabetes Paternal Grandfather Cancer Other FH: mental illness Substance abuse Social History Housing: Apartment Patient Tobacco Use Status: Never used Tobacco e-Cigarette/Vaping Use: Never Used Second Hand Smoke Exposure: No service: No Current occupational status: employed Current occupation: [employer] Current occupational exposures/hazards: No Cognitive needs: No Hearing needs: No Vision needs: No Female Reproductive History Menstrual Age of Menarche: 11 Assessment & Plan Assessment & Plan (1) Obesity, morbid, BMI 40.0-49.9: Code(s): E66.01 - Morbid (severe) obesity due to excess calories Category: Medical Plan: Lab: Chol (from 259 in September to 212 inNov, LDL 189 in September to 153 in Jan, Tg WNL), no on chol meds Wt: 112 Kg ( 07/2023 ), 110 kg (11/2023), 112 (03/23), 05/25) Est kcal needs as per MSJ: 2500 (40% carb, 30% protein/fat) Est fluid needs as per 25-30 ml/d: 3300 Est prot per day as per 1 g/kg bw: 112 Recommend fiber intake : 8-10 g per day and gradually increase to 25-28 g per day for women and 35-38 g for men or as tolerated Recommend sodium intake per day : less than 2000 mg Educated patient on: ( R = reviewed V = verbalizes understanding N/R = needs review N/A = not applicable * Food sources of carbohydrate, adequate serving sizes and its role in various health conditions: R V N/R * Differences between complex carbohydrates a simple carbohydrates, role of fiber in diet: R * Lean protein sources of foods: R * Differences between types of fats and role in diet (mono on saturated fat fatty acids, saturated fatty acids, trans fats): R * Food sources of sodium in salt and healthy modifications for heart health in kidney health: R V R/V * Vitamins and minerals: R * Healthy plate method concept: R * Physical activity: Benefits a precaution: R * Hydration: R Patient Instructions: Reduce on fries (fried starches) Continue working on reducing on high fat meats (beef/pork/fried and breaded meats )choose chicken yohan with vegetable as example or tuna or veggie sand Continue with physical activity 30 minutes daily and keep hydrated by having water with meals/snack/throughout Coding Level of Care Code Nutr Indiv Subseq (22009) Diagnoses Obesity, morbid, BMI 40.0-49.9 E66.01 Time Spent (min) 20
[2024-05-11 10:19] VITALS: BMI 41.0
--- OUTSIDE RECORDS SUMMARY | 2024-05-11 11:13 | XMS_ITS | Data Portability ---
Author Organization [facility] [address] Address [address] [place] [address] Assessment No assessment recorded. Plan of Treatment Reminders Order Date Submit Date Provider Last Modified By Organization Details Last Modified Time Details Appointments None recorded. Lab None recorded. Referral None recorded. Procedures None recorded. Surgeries None recorded. Imaging None recorded. Medication Orders cyclobenzap rine 10 mg tablet 2023 024 [id number], [address] [place], [address], 12:42:11 naproxen 500 mg tablet 2023 024 [facility], [address] [place], [address], 12:42:11 Patient TargetsNo targets recorded. Patient Instructions Encounter Date Encounter Id Patient Instructions Last Modified By Organization Details Last Modified Time 11/02/2023 [id number] neck pain: care instructions [email or web address] Not available 11/02/2023 12:42:09 Reason for Referral None Reported. Problems Name Problem SNOMED Code Status Onset Date Resolution Date Notes Provider Name and Address Organization Details Recorded Time Anemia 452152737 Active 2023 [facility] 12:25:13 Muscle spasm of cervical muscle of neck 425087887500 Active 2023 Martell Michael NP [address], [place], [address] , [facility] 12:41:22 Problem Notes [...] height Body mass index (BMI) Body weight Pain severity - 0-10 verbal numeric rating [Score] - Reported Respiratory rate Body temperature Oxygen saturation Oxygen saturation in Arterial blood by Pulse oximetry Heart rate Systolic blood pressure Diastolic blood pressure Provider Name and Address Organization Details Last Updated DateTime 165.1 cm 40.4 kg/m2 689205. 95 g 0 18 /min 96.8 [degF] 100 % 100 % 91 /min 132 mm[Hg] 86 mm[Hg] Aida Daigle [facility] 12:28:58 Social History Question Answer Notes LastModified by Gran[employer] ion Details LastModified Time Tobacco Smoking Status Never Smoker Aida schmidt [facility] 11/02/2023 12:25:41 What Is Your Level [...] Diagnosis/Indication Diagnosis SNOMED-CT Code Diagnosis ICD10 Code Diagnosis Note [id number] [place] [address] [address] 11/02/2023 12:16:34 11/02/2023 12:45:09 Muscle spasm of cervical muscle of neck 5340705107 04 M62.838 - Good neck mechanics, posture, modalities reviewed with patient.- Heat 10-15 minutes 3 times a day, then neck stretches as tolerated not beyond pain.- Next support/pi llow at bedtime.- No lifting or straining until symptoms resolve.- Follow-up with your Primary provider in 2-3 weeks for a recheck, or [facility] sooner if new or worsening symptoms.- If you develop severe neck pain that is not relieved with medication s, have fevers, weakness or numbness to your upper extremitie s (arms/hand ) or lower extremitie s (legs/feet ) immediatel y go to Emergency room for further evaluation .- Narcotics are not recommende d for neck or back pain, if you feel this is needed you will need to speak to your Primary provider or a pain specialist .- Use over the counter NSAIDS: ibuprofen, aspirin, naprosyn, motrin as directed by bottle -as needed for pain. If you have a history of gastric bypass, bleeding ulcers, kidney disease, or have been told you should not use NSAIDS then you may use over the counter tylenol as needed for pain. Health Concerns Section Related Observation LastModified by Organization Detai ls LastModified Time None Recorded Concern Status LastModified by Organization Details LastModified Time None Recorded Advance Directives Directive None Recorded Payers Encounter Date Sequence Insurance Name Policy Number Policy Amaya Covered Member ID Amaya Member ID Guarantor Name 11/02/2023 1 [facility] [id number] Pratima Herron [id number] Pratima Herron Notes Date Note Type [...] Michael NP [address] [place], [address], [place] - [facility] 11/02/2023 12:44:16 OBGyn Episode No OBEpisode recorded.
== END 2024-05-11 10:40 | disposition home or self-care (01) ==
PROVIDERS: PCP Nurse Practitioner Family; Visit Provider Dietitian, Registered
DX: E66.01 Morbid (severe) obesity due to excess calories (principal)

== ENCOUNTER → 2024-05-11 10:06 | Outpatient (BNVA) | payer OTHER, SELFPAY | PROVIDERS: PCP Nurse Practitioner Family; Visit Provider Dietitian, Registered | DX: E66.01 Morbid (severe) obesity due to excess calories (principal); Z68.41 Body mass index [BMI] 40.0-44.9, adult | CPT/HCPCS: 97803 ==

== ENCOUNTER 2024-06-11 12:15 | Outpatient (AMB) | payer OTHER, SELFPAY ==
--- NOTE | 2024-06-11 12:19 | A.OFFPC_ITS ---
Vital Signs 06/11/24 12:23 Height 5 ft 5 in Weight 248 lb BMI 41.3 BP 132/75 Blood Pressure Location Rt brachial Position Sitting Respiration 16 Pulse 76 Pulse Source Pulse Oximeter Temp 99 F Temp Source Oral Pulse Oximetry (%) 100 Oxygen Delivery Method Room Air Intake Visit Reasons: 3 mos hypercholesterolemia ethel from 05/21 Intake Note: patient here for 3month follow up on Hypercholesterolemia Court Recording Monitor Required: No Is last menstrual period known: Yes Last menstrual period: 05/20/24 Post menopausal: No Patient : No Allergies No Known Allergies Allergy (Verified 06/11/24 12:22) Tobacco use date assessed: 06/11/24 Dental Screening Dental Screen Date: 06/11/24 Did you have a dental visit in the last 12 months?: No Did you have a dental problem in the last 6 months where you did not have access to dental care?: No Was dental information given to patient?: Yes HPI HPI Comments History of Present Illness Details 39-year-old female presents for hypercho lesterolemia follow-up. She is on folic acid 1 mg daily but frequently forgets to take the medication. She has not been following up with Hematology. She generally makes healthy dietary choices and exercise routinely. She did not get lipid panel blood work done for this visit as planned. She offers no complaints and denies acute symptoms at this time. [facility] Medical History No pertinent past medical history Surgical History H/O removal of neck cyst No pertinent past surgical history Family History Mother High blood pressure Alcoholism in family Rheumatoid arthritis Father Diabetes Psychiatric diagnosis Paternal Grandmother Diabetes Paternal Grandfather Cancer Other FH: mental illness Substance abuse Social History Housing: Apartment Patient Tobacco Use Status: Never used Tobacco e-Cigarette/Vaping Use: Never Used Second Hand Smoke Exposure: No service: No Current occupational status: employed Current occupation: [employer] Current occupational exposures/hazards: No Cognitive needs: No Hearing needs: No Vision needs: No Female Reproductive History Menstrual Age of Menarche: 11 Date of last menstrual period: 05/20/24 Questionnaire PHQ-9 Over the last 2 weeks, how often have you been bothered by any of the following problems? 1. Little interest or pleasure in doing things: not at all 2. Feeling down, depressed, or hopeless: not at all 3. Trouble falling or staying asleep, or sleeping too much: not at all 4. Feeling tired or having little energy: not at all 5. Poor appetite or overeating: several days 6. Feeling bad about yourself - or that you are a failure or have let yourself or your family down: not at all 7. Trouble concentrating on things, such as reading the newspaper or watching television: not at all 8. Moving or speaking so slowly that other people could have noticed. Or the opposite - being so fidgety or restless that you have been moving around a lot more than usual: not at all 9. Thoughts that you would be better off or of hurting yourself in some way: not at all Total score: 1 Depression Screening Interpretation: Negative Depression Screening Done: Yes Source: Developed by Drs. Farhad Curtis, Jessica Phillips, Franky Del Angel and colleagues, with an educational areli from [employer]. Thrive Questionnaire Date Thrive assessed: 06/08/24 I am a: Patient What is your living situation today?: I have a steady place to live Within the past 12 months, did the food you bought not last and you didn't have the money to get more?: Never true Within the past 12 months, did you worry whether your food would run out before you got money to buy more?: Never true Do you have trouble paying for medicines?: No Do you have trouble getting transportation to medical appointments?: No Do you have trouble paying your heating and electricity bill?: No Do you have trouble taking care of your child, family member or friend?: No Do you have trouble with day-to-day activities such as bathing, preparing meals, shopping, managing finances, etc.?: No Are you currently unemployed and looking for a job?: No Are you interested in more education?: Yes Please select the resources that you would like help with: None Currently or been in a relationship where the following occur: No concerns reported THRIVE Score: 0 AUDIT C Alcohol Use Questionnaire (AUDIT-C) 1. How often do you have a drink containing alcohol?: Monthly or less 2. How many drinks containing alcohol do you have on a typical day when you are drinking?: 1 or 2 3. How often do you have six or more drinks on one occasion?: Never Total Score: 1 PAZ-7 AMB Questionnaire PAZ-7 Date PAZ - 7 assessed: 07/15/23 Feeling nervous, anxious, or on edge: 0 = Not at all Not being able to stop or control worryin = Not at all Worrying too much about different things: 0 = Not at all Trouble relaxin = Not at all Being so restless that it is hard to sit still: 0 = Not at all Becoming easily annoyed or irritable: 0 = Not at all Feeling afraid as if something awful might happen: 0 = Not at all Total PAZ-7 score (0-4 normal; 5-9 mild; 10-14 moderate; 15-21 severe): 0 Source: Developed by Drs. Farhad Curtis, Jessica Phillips, Franky Del Angel and colleagues, with an educational areli from [employer]. Review of Systems Const Details: Const Denies chills, Denies fatigue, Denies fever(s), Denies headache(s) and Denies weakness ENT Denies dizziness and Denies headache(s) Card Denies chest pain, Denies lightheadedness, Denies dyspnea and Denies other (Palpitations) Resp Denies cough, Denies dyspnea, Denies wheezing and Denies other ( shortness of breath) GI Denies abdominal pain, Denies melena, Denies hematochezia, Denies change in bowel habits, Denies dyspepsia and Denies nausea Denies hematuria and Denies dysuria Musc Denies abnormal gait, Denies myalgias, Denies arthralgias, Denies numbness and Denies tingling Skin/Breast Denies rash, Denies unusual bruising and Denies wounds Neuro Denies abnormal gait, Denies dizziness, Denies headache(s), Denies memory loss, Denies numbness, Denies Sensory deficit (Neuro), Denies tingling and Denies weakness Psych Denies anxiety, Denies depression, Denies memory loss Endo Denies cold intolerance, Denies fatigue, Denies heat intolerance, Denies polydipsia and Denies polyuria Aller/Immun Denies wheezing Physical exam (Primary Care) Vital Signs: Last Vital Signs Temp 99 F 06/11/24 12:23 Pulse 76 06/11/24 12:23 Resp 16 06/11/24 12:23 BP 132/75 06/11/24 12:23 Pulse Ox 100 06/11/24 12:23 Oxygen Delivery Method Room Air 06/11/24 12:23 BMI result Body Mass Index 41.3 Tobacco/Smoking Status: Tobacco use Status Tobacco use date assessed 06/11/24 06/11/24 12:26 Patient Tobacco Use Status Never used Tobacco 06/11/24 12:26 e-Cigarette/Vaping Use Never Used 06/11/24 12:26 PHQ-9: PHQ-9 Score PHQ-9: Total score 1 06/11/24 12:26 Depression Screening Interpretation: Negative Thrive Assessment: Date of Thrive Assessment Date Thrive assessed 06/08/24 06/11/24 12:26 Currently or been in a relationship where the following occur: No concerns reported Const Other: General: no acute distress and well developed Nutritional Appearance: well nourished Orientation/consciousness: patient oriented x3 HENMT Head: Yes normocephalic and Yes atraumatic Eyes General: appearance normal, both eyes and all related structures Pupils: Equal, round and reactive pupils present EOM: EOMs intact bilaterally Resp Effort & Inspection: normal respiratory effort Auscultation: clear to auscultation bilaterally Cardio Rate: regular rate Rhythm: regular rhythm Heart sounds: S1 normal heart sound present, S2 normal heart sound present, no gallops, no murmurs and no rubs GI Palpation (GI): No Abdominal aortic bruit present, Soft to palpation, nontender, No hepatosplenomegaly present and No Rebound tenderness present Auscultation: normal bowel sounds General: Yes no CVA tenderness Back/Spine/Pelvis Back: no CVA tenderness Cervical Spine: cervical ROM normal and No Cervical spine tenderness Thoracic/Lumbar Spine: thoraco-lumbar ROM normal, No pain with thoraco-lumbar ROM, No thoracic spinal tenderness and No lumbar spinal tenderness Extrem General: Yes normal to inspection, No edema and No calf tenderness Skin General: warm and dry. Normal skin color. Normal skin turgor Neuro General: patient oriented x3, gait normal and no focal neuro deficit Cranial nerves: Yes Equal, round and reactive pupils present Cognition (Neuro): normal cognition Gait exam (Neuro): Normal gait present Sensory Exam: No Sensory deficit (Neuro) Psych Appearance: grossly normal Affect: normal affect Attitude: cooperative Thought process: Normal thought process present Coding Level of Care Code Est Pt Level 3 (89357) Diagnoses Iron deficiency anemia D50.9 Hypercholesterolemia E78.00 Assessment & Plan Assessment & Plan (1) Iron deficiency anemia: Code(s): D50.9 - Iron deficiency anemia, unspecified Category: Medical Plan: She is on folic acid 1 mg daily but frequently forgets to take the medication. She has not been following up with Hematology. Encouraged to take folic acid daily as prescribed. Will check CBC and make changes as needed. Verbalized understanding and agreed with the plan. (2) Hypercholesterolemia: Code(s): E78.00 - Pure hypercholesterolemia, unspecified Category: Medical Plan: Patient did not get lipid panel blood work done for this visit as planned. She has been fasting for more than 12 hours and will get blood work done today. Will review results and make changes as needed. Advised to limit foods high in saturated fat and avoid foods high in trans fat. Routine exercise encouraged. Verbalized understanding and agreed with the plan. Orders: Orders Complete Blood Count no Diff Today D50.9 - Iron deficiency anemia, unspecified, E78.00 - Pure hypercholesterolemia, unspecified
[2024-06-11 12:23] VITALS: BP 132/75; PULSE 76; RESP 16; TEMP 37.2; O2SAT 100; BMI 41.3
--- OUTSIDE RECORDS SUMMARY | 2024-06-11 13:53 | XMS_ITS | Data Portability ---
Author Organization [facility] [address] Address [address] [place] [address] Assessment No assessment recorded. Plan of Treatment Reminders Order Date Submit Date Provider Last Modified By Organization Details Last Modified Time Details Appointments None recorded. Lab None recorded. Referral None recorded. Procedures None recorded. Surgeries None recorded. Imaging None recorded. Medication Orders cyclobenzap rine 10 mg tablet 2023 024 [facility], [address] [place], [address], 12:42:11 naproxen 500 mg tablet 2023 024 [facility], [address] [place], [address], 12:42:11 Patient TargetsNo targets recorded. Patient Instructions Encounter Date Encounter Id Patient Instructions Last Modified By Organization Details Last Modified Time 11/02/2023 [id number] neck pain: care instructions [email or web address] Not available 11/02/2023 12:42:09 Reason for Referral None Reported. Problems Name Problem SNOMED Code Status Onset Date Resolution Date Notes Provider Name and Address Organization Details Recorded Time Anemia 814634980 Active 2023 [facility] 12:25:13 Muscle spasm of cervical muscle of neck 886398867898 Active 2023 Martell Michael NP [address], [place], [address] , [facility] 12:41:22 Problem Notes None recorded. [...] Last Updated DateTime 165.1 cm 40.4 kg/m2 956590. 95 g 0 18 /min 96.8 [degF] 100 % 100 % 91 /min 132 mm[Hg] 86 mm[Hg] Aida Daigle [facility] 12:28:58 Social History Question Answer Notes LastModified by ZEturfizat ion Details LastModified Time Tobacco Smoking Status Never Smoker Aida schmidt [facility] 11/02/2023 12:25:41 What Is Your Level [...] SNOMED-CT Code Diagnosis ICD10 Code Diagnosis Note [id number] Martell Michael [place] [address] [address] 11/02/2023 12:16:34 11/02/2023 12:45:09 Muscle spasm of cervical muscle of neck 1602923077 04 M62.838 - Good neck mechanics, posture, [...] Amaya Member ID Guarantor Name 11/02/2023 1 [facility] [id number] Pratima Herron [id number] 1 Pratima Herron Notes Date Note Type [...] Michael NP [address] [place], [address], [place] - [facility] 11/02/2023 12:44:16 OBGyn Episode No OBEpisode recorded.
== END 2024-06-11 12:51 | disposition home or self-care (01) ==
LOC: HO.HMCFM 12:15
PROVIDERS: PCP Nurse Practitioner Family; Visit Provider Nurse Practitioner Family
DX: D50.9 Iron deficiency anemia, unspecified (principal); E78.00 Pure hypercholesterolemia, unspecified

== ENCOUNTER → 2024-06-11 12:15 | Outpatient (BNVA) | payer OTHER, SELFPAY | PROVIDERS: PCP Nurse Practitioner Family; Visit Provider Nurse Practitioner Family | DX: D50.9 Iron deficiency anemia, unspecified (principal); E78.00 Pure hypercholesterolemia, unspecified | CPT/HCPCS: 99212 ==

== ENCOUNTER 2024-06-11 12:58 | Outpatient (REF) | payer OTHER, SELFPAY ==
[2024-06-11 14:59] LABS: Hematocrit 34.6 % (37.0-47.0); Hemoglobin 11.2 g/dl (12.0-16.0); Mean Corpuscular HGB Conc 32.4 g/dl (31.0-35.0); Mean Corpuscular Volume 71.2 fL (80.0-98.0); Mean Platelet Volume 9.5 fL (9.4-12.3); Platelet Count 325 X10*3/uL (160-400); Red Blood Count 4.86 X10*6/uL (4.20-5.50); Red Cell Distribution Width 16.9 % (11.0-16.0); White Blood Count 4.5 X10*3/uL (4.8-10.8)
[2024-06-11 15:38] LABS: Cholesterol 227 mg/dL (<200); HDL Cholesterol 48 mg/dL (>40); LDL Cholesterol Calculated 158 mg/dL (<100); Triglycerides 107 mg/dL (<150)
== END 2024-06-11 12:59 | disposition home or self-care (01) ==
LOC: HO.WFDLDS 12:58
PROVIDERS: Visit Provider Nurse Practitioner Family
DX: D50.9 Iron deficiency anemia, unspecified (principal); E78.00 Pure hypercholesterolemia, unspecified
CPT/HCPCS: 36415; 80061; 85027

== ENCOUNTER 2024-06-18 10:50 | Outpatient (REF) | payer OTHER, SELFPAY ==
[2024-06-18 14:32] LABS: Cholesterol 236 mg/dL (<200); HDL Cholesterol 45 mg/dL (>40); Iron 47 mcg/dL (30-160); LDL Cholesterol Calculated 172 mg/dL (<100); Percent Iron Saturation 17 % (15-50); Total Iron Binding Capacity 282 mcg/dL (228-428); Triglycerides 97 mg/dL (<150); Unsaturated Iron Binding 235 ug/dL
[2024-06-18 15:03] LABS: Folate 13.9 ng/mL (> or = 4.0); Vitamin B12 702 pg/mL (200-900)
== END 2024-06-18 10:51 | disposition home or self-care (01) ==
LOC: HO.WFDLDS 10:50
PROVIDERS: Visit Provider Nurse Practitioner Family
DX: D50.9 Iron deficiency anemia, unspecified (principal); E78.00 Pure hypercholesterolemia, unspecified
CPT/HCPCS: 36415; 80061; 82607; 82746; 83540

== ENCOUNTER 2024-06-22 11:05 | Outpatient (AMB) | payer OTHER, SELFPAY ==
[2024-06-22 11:15] VITALS: BMI 41.4
--- NOTE | 2024-06-22 11:15 | A.OFFVIS_ITS ---
VS Expanded 06/22/24 11:15 Height 5 ft 5 in Weight 248 lb 10.903 oz BMI 41.4 Intake Visit Reasons: Obesity Allergies No Known Allergies Allergy (Verified 06/11/24 12:22) Nutrition Presentation Details: Pt presents for MNT f/u for hyperlipidemia , obesity Pt reports restarting to work on keeping routine (meal prepping) , B: Protein shake with fruits L: salmon white rice mixed veg dinner : rolle soup (Mediterranean veg soup) Pt reports resuming on reducing red meats in the past 2 weeks - after seeing cholesterol results gym: 2 times/wk, 30 min water: 16 oz /d BS Monitoring Most Recent Diabetes Results: Cholesterol 236 mg/dL (<200) H 06/18/24 HDL Cholesterol 45 mg/dL (>40) 06/18/24 Triglycerides 97 mg/dL (<150) 06/18/24 PFSH Medical History No pertinent past medical history Surgical History H/O removal of neck cyst No pertinent past surgical history Family History Mother High blood pressure Alcoholism in family Rheumatoid arthritis Father Diabetes Psychiatric diagnosis Paternal Grandmother Diabetes Paternal Grandfather Cancer Other FH: mental illness Substance abuse Social History Housing: Apartment Patient Tobacco Use Status: Never used Tobacco e-Cigarette/Vaping Use: Never Used Second Hand Smoke Exposure: No service: No Current occupational status: employed Current occupation: [employer] Current occupational exposures/hazards: No Cognitive needs: No Hearing needs: No Vision needs: No Female Reproductive History Menstrual Age of Menarche: 11 Assessment & Plan Assessment & Plan (1) Obesity, morbid, BMI 40.0-49.9: Code(s): E66.01 - Morbid (severe) obesity due to excess calories Category: Medical Plan: Lab: Wt: 112 Kg ( 07/2023 ), 110 kg (11/2023), 112 (03/23), 05/25), 06/22 Est kcal needs as per MSJ: 2500 (40% carb, 30% protein/fat) Est fluid needs as per 25-30 ml/d: 3300 Est prot per day as per 1 g/kg bw: 112 Recommend fiber intake : 8-10 g per day and gradually increase to 25-28 g per day for women and 35-38 g for men or as tolerated Recommend sodium intake per day : less than 2000 mg Educated patient on: ( R = reviewed V = verbalizes understanding N/R = needs review N/A = not applicable * Food sources of carbohydrate, adequate serving sizes and its role in various health conditions: R V N/R * Differences between complex carbohydrates a simple carbohydrates, role of fiber in diet: R * Lean protein sources of foods: R * Differences between types of fats and role in diet (mono on saturated fat fatty acids, saturated fatty acids, trans fats): R * Food sources of sodium in salt and healthy modifications for heart health in kidney health: R V R/V * Vitamins and minerals: R * Healthy plate method concept: R * Physical activity: Benefits a precaution: R * Hydration: R Patient Instructions: Choose fiber rich foods : sweet potato, mixed vegetables Reduce on saturated fats (pastries/cookies/fried foods, amount of cheese added to the foods Have fish twice week in place keep consistent with physical activity 30 minute twice a week Coding Level of Care Code Nutr Indiv Subseq (95211) Diagnoses Obesity, morbid, BMI 40.0-49.9 E66.01 Time Spent (min) 25
--- OUTSIDE RECORDS SUMMARY | 2024-06-22 13:40 | XMS_ITS | Data Portability ---
Author Organization [facility] [address] Address [address] [place] [address] Assessment No assessment recorded. Plan of Treatment Reminders Order Date Submit Date Provider Last Modified By Organization Details Last Modified Time Details Appointments None recorded. Lab None recorded. Referral None recorded. Procedures None recorded. Surgeries None recorded. Imaging None recorded. Medication Orders cyclobenzap rine 10 mg tablet 2023 024 [facility], [address] [place], [address], 12:42:11 naproxen 500 mg tablet 2023 024 [facility], [address] [place], [address], 12:42:11 Patient TargetsNo targets recorded. Patient Instructions Encounter Date Encounter Id Patient Instructions Last Modified By Organization Details Last Modified Time 11/02/2023 [id number] neck pain: care instructions [email or web address] Not available 11/02/2023 12:42:09 Reason for Referral None Reported. Problems Name Problem SNOMED Code Status Onset Date Resolution Date Notes Provider Name and Address Organization Details Recorded Time Anemia 765786224 Active 2023 [facility] 12:25:13 Muscle spasm of cervical muscle of neck 593767327682 Active 2023 Martell Michael NP [address], [place], [address] , [facility] 12:41:22 Problem Notes [...] Last Updated DateTime 165.1 cm 40.4 kg/m2 454488. 95 g 0 18 /min 96.8 [degF] 100 % 100 % 91 /min 132 mm[Hg] 86 mm[Hg] Aida Daigle [facility] 12:28:58 Social History Question Answer Notes LastModified by Element IDizat ion Details LastModified Time Tobacco Smoking Status Never Smoker Aida schmidt [facility] 11/02/2023 12:25:41 What Is Your Level [...] SNOMED-CT Code Diagnosis ICD10 Code Diagnosis Note [id number] Martell Michael [place] [address] [address] 11/02/2023 12:16:34 11/02/2023 12:45:09 Muscle spasm of cervical muscle of neck 8929883210 04 M62.838 - Good neck mechanics, posture, [...] Amaya Member ID Guarantor Name 11/02/2023 1 [facility] [id number] Pratima Herron [id number] Pratima Herron Notes Date Note Type [...] Michael NP [address] [place], [address], [place] - [facility] 11/02/2023 12:44:16 OBGyn Episode No OBEpisode recorded.
== END 2024-06-22 11:35 | disposition home or self-care (01) ==
LOC: HO.ENCR 11:06
PROVIDERS: PCP Nurse Practitioner Family; Visit Provider Dietitian, Registered
DX: E66.01 Morbid (severe) obesity due to excess calories (principal)

== ENCOUNTER → 2024-06-22 11:05 | Outpatient (BNVA) | payer OTHER, SELFPAY | PROVIDERS: PCP Nurse Practitioner Family; Visit Provider Dietitian, Registered | DX: E66.01 Morbid (severe) obesity due to excess calories (principal); E78.5 Hyperlipidemia, unspecified; Z71.3 Dietary counseling and surveillance; Z68.41 Body mass index [BMI] 40.0-44.9, adult | CPT/HCPCS: 97803 ==

== ENCOUNTER 2024-10-25 09:25 | Outpatient (REF) | payer OTHER, SELFPAY ==
--- OUTSIDE RECORDS SUMMARY | 2024-10-25 10:14 | XMS_ITS | Data Portability ---
Author Organization [facility] [address] Address [address] [place] [address] Assessment No assessment recorded. Plan of Treatment Reminders Order Date Submit Date Provider Last Modified By Organization Details Last Modified Time Details Appointments None recorded. Lab None recorded. Referral None recorded. Procedures None recorded. Surgeries None recorded. Imaging None recorded. Medication Orders cyclobenzap rine 10 mg tablet [address] [facility] #[facility], [address] [place], [address], 12:42:11 naproxen 500 mg tablet [address] [facility] #[facility], [address] [place], [address], 12:42:11 Patient TargetsNo targets recorded. Patient Instructions Encounter Date Encounter Id Patient Instructions Last Modified By Organization Details Last Modified Time 11/02/2023 [id number] neck pain: care instructions [email or web address] Not available 11/02/2023 12:42:09 Reason for Referral None Reported. Problems Name Problem SNOMED Code Status Onset Date Resolution Date Notes Provider Name and Address Organization Details Recorded Time Anemia 551776477 Active 2023 [facility] 12:25:13 Muscle spasm of cervical muscle of neck 143440548187 Active 2023 Martell Michael NP [address], [place], [address] , [facility] 12:41:22 Problem Notes [...] blood by Pulse oximetry Heart rate Systolic And Diastolic Provider Name and Address Organization Details Last Updated DateTime 165.1 cm 40.4 kg/m2 339637. 95 g 0 18 /min 96.8 [degF] 100 % 100 % 91 /min 132/86 mm[Hg] Aida Daigle [facility] 12:28:58 Social History Question Answer Notes LastModified by Moodswing Details LastModified Time Tobacco Smoking Status Never Smoker Aida schmidt [place] [facility] 11/02/2023 12:25:41 Have You Had A Flu Shot This Season? No Information not available 11/02/2023 If No, Would You Like A Flu Shot Today? No Information not available 11/02/2023 Have You Recently Traveled Abroad? No Information not available 11/02/2023 Sex: Unknown Functional Status Question Answer Note LastModified by [employer] Details LastModified Time How many times per week do you consume alcohol? 1-2 times per week Information not available 11/02/2023 Do you use any illicit or recreational drugs? No Information not available 11/02/2023 Do you or have you ever used any other forms of tobacco or nicotine? No Information not available 11/02/2023 What is your level of alcohol consumption? Occasional Information not available 11/02/2023 Mental Status None recorded. Family History Relationship [...] SNOMED-CT Code Diagnosis ICD10 Code Diagnosis Note [id number] Martell Michael [place] [address] [address] 11/02/2023 12:16:34 11/02/2023 12:45:09 Muscle spasm of cervical muscle of neck 8811432680 04 M62.838 - Good neck mechanics, posture, [...] Recorded Advance Directives Directive None Recorded Payers Insurance Date Sequence Insurance Name Policy Number Policy Amaya Covered Member ID Amaya Member ID Guarantor Name 11/02/2023 1 [facility] [id number] Pratima Herron [id number] Pratima Herron OBGyn Episode No OBEpisode recorded.
[2024-10-25 12:07] LABS: Cholesterol 264 mg/dL (<200); HDL Cholesterol 50 mg/dL (>40); Triglycerides 127 mg/dL (<150)
== END 2024-10-25 09:26 | disposition home or self-care (01) ==
LOC: HO.WFDLDS 09:25
PROVIDERS: Visit Provider Nurse Practitioner Family
DX: E78.00 Pure hypercholesterolemia, unspecified (principal)
CPT/HCPCS: 36415; 80061

== ENCOUNTER 2024-10-26 10:13 | Outpatient (AMB) | payer OTHER, SELFPAY ==
--- NOTE | 2024-10-26 10:16 | A.OFFPC_ITS ---
Vital Signs 10/26/24 10:22 Height 5 ft 5 in Weight 253 lb 8 oz BMI 42.2 BP 129/73 Blood Pressure Location Rt brachial Position Sitting Respiration 16 Pulse 89 Pulse Source Pulse Oximeter Temp 98.8 F Temp Source Oral Pulse Oximetry (%) 98 Oxygen Delivery Method Room Air Intake Visit Reasons: 5 wks CPE, labs review Intake Note: patient here for CPE and lab review K9 Handler Required: No Is last menstrual period known: Yes Last menstrual period: 09/30/24 Post menopausal: No Patient : No Allergies No Known Allergies Allergy (Verified 10/26/24 10:43) Medication List - Last Reconciled 10/26/24 by Candace La CNP folic acid 1 mg PO DAILY Tobacco use date assessed: 10/26/24 Dental Screening Dental Screen Date: 10/26/24 Did you have a dental visit in the last 12 months?: No Did you have a dental problem in the last 6 months where you did not have access to dental care?: No Was dental information given to patient?: Patient has dentist HPI HPI Comments History of Present Illness Details 39-year-old female presents for an exten ded physical exam. She is on folic acid 1 mg daily. Acute issue(s) - None Past Medical History - Iron-deficiency anemia, hypercholester olemia, and morbid obesity. Social History - Nonsmoker. Does not vape. Drinks 2 gla sses of wine once every 2 months. Denies recreational drug use - Has been making healthy dietary choice s. Active but does not exercise. Generally sleep well Health maintenance - Last eye exam was 4 years ago. Referre d to Ophthalmology for routine eye exam - Last dental visit was 2 years ago; she has a dental appointment scheduled in 10/2024 - Last tetanus vaccine was more than 10 years ago; received Tdap vaccine today - Has not been vaccinated for the flu season; declines vaccination - Last pap smear test was in October 2022 with [facility] do[facility] heater: Normal Specialists [facility] hematology/oncology and director pharmacovigilance/dietitian [facility] Medical History No pertinent past medical history Surgical History H/O removal of neck cyst No pertinent past surgical history Family History Mother High blood pressure Alcoholism in family Rheumatoid arthritis Father Diabetes Psychiatric diagnosis Paternal Grandmother Diabetes Paternal Grandfather Cancer Other FH: mental illness Substance abuse Social History Housing: Apartment Patient Tobacco Use Status: Never used Tobacco e-Cigarette/Vaping Use: Never Used Second Hand Smoke Exposure: No service: No Current occupational status: employed Current occupation: [employer] Current occupational exposures/hazards: No Cognitive needs: No Hearing needs: No Vision needs: No Female Reproductive History Menstrual Age of Menarche: 11 Date of last menstrual period: 09/30/24 Questionnaire PHQ-9 Over the last 2 weeks, how often have you been bothered by any of the following problems? 1. Little interest or pleasure in doing things: not at all 2. Feeling down, depressed, or hopeless: not at all 3. Trouble falling or staying asleep, or sleeping too much: not at all 4. Feeling tired or having little energy: not at all 5. Poor appetite or overeating: not at all 6. Feeling bad about yourself - or that you are a failure or have let yourself or your family down: not at all 7. Trouble concentrating on things, such as reading the newspaper or watching television: not at all 8. Moving or speaking so slowly that other people could have noticed. Or the opposite - being so fidgety or restless that you have been moving around a lot more than usual: not at all 9. Thoughts that you would be better off or of hurting yourself in some way: not at all Total score: 0 Depression Screening Interpretation: Negative Depression Screening Done: Yes [id number] - PHQ-9 Billing: Yes Source: Developed by Drs. Farhad Curtis, Jessica Phillips, Franky Del Angel and colleagues, with an educational areli from [employer]. Thrive Questionnaire Date Thrive assessed: 10/26/24 I am a: Patient What is your living situation today?: I have a steady place to live Within the past 12 months, did the food you bought not last and you didn't have the money to get more?: Never true Within the past 12 months, did you worry whether your food would run out before you got money to buy more?: Never true Do you have trouble paying for medicines?: No Do you have trouble getting transportation to medical appointments?: No Do you have trouble paying your heating and electricity bill?: No Do you have trouble taking care of your child, family member or friend?: No Do you have trouble with day-to-day activities such as bathing, preparing meals, shopping, managing finances, etc.?: No Are you currently unemployed and looking for a job?: No Are you interested in more education?: No Please select the resources that you would like help with: None Currently or been in a relationship where the following occur: No concerns reported THRIVE Score: 0 AUDIT C Alcohol Use Questionnaire (AUDIT-C) 1. How often do you have a drink containing alcohol?: Monthly or less 2. How many drinks containing alcohol do you have on a typical day when you are drinking?: 1 or 2 3. How often do you have six or more drinks on one occasion?: Never Total Score: 1 Score Reviewed/Action Taken: Yes PAZ-7 AMB Questionnaire PAZ-7 Date PAZ - 7 assessed: 10/26/24 Feeling nervous, anxious, or on edge: 0 = Not at all Not being able to stop or control worryin = Not at all Worrying too much about different things: 0 = Not at all Trouble relaxin = Not at all Being so restless that it is hard to sit still: 0 = Not at all Becoming easily annoyed or irritable: 0 = Not at all Feeling afraid as if something awful might happen: 0 = Not at all Total PAZ-7 score (0-4 normal; 5-9 mild; 10-14 moderate; 15-21 severe): 0 Source: Developed by Drs. Farhad Curtis, Jessica Phillips, Franky Del Angel and colleagues, with an educational areli from [employer]. PAZ-7 Assessment Billing PAZ-7 Assessment Tool: PAZ-7 Assessment 94769 Review of Systems Const Details: Denies chills, Denies fatigue, Denies fever(s), Denies headache(s) and Denies weakness HEENT Denies change in vision, Denies dizziness, Denies headache(s), Denies hearing loss, Denies nasal congestion, Denies sinus pain, Denies sinus pressure and Denies sore throat Card Denies chest pain, Denies lightheadedness, Denies dyspnea and Denies other (palpitations) Resp Denies cough, Denies dyspnea and Denies wheezing GI Denies abdominal pain, Denies melena, Denies hematochezia, Denies change in bowel habits, Denies dyspepsia and Denies nausea Denies hematuria and Denies dysuria Musc Denies abnormal gait, Denies myalgias, Denies arthralgias, Denies numbness and Denies tingling Skin/Breast Denies rash, Denies unusual bruising and Denies wounds Neuro Denies abnormal gait, Denies dizziness, Denies headache(s), Denies memory loss, Denies numbness, Denies Sensory deficit (Neuro), Denies tingling and Denies weakness Psych Denies anxiety, Denies depression and Denies memory loss Endo Denies cold intolerance, Denies fatigue, Denies heat intolerance, Denies polydipsia and Denies polyuria Ender/Lymph Denies easy bleeding and Denies easy bruising Aller/Immun Denies wheezing Physical exam (Primary Care) Vital Signs: Last Vital Signs Temp 98.8 F 10/26/24 10:22 Pulse 89 10/26/24 10:22 Resp 16 10/26/24 10:22 BP 129/73 10/26/24 10:22 Pulse Ox 98 10/26/24 10:22 Oxygen Delivery Method Room Air 10/26/24 10:22 BMI result Body Mass Index 42.2 Tobacco/Smoking Status: Tobacco use Status Tobacco use date assessed 10/26/24 10/26/24 10:28 Patient Tobacco Use Status Never used Tobacco 10/26/24 10:20 e-Cigarette/Vaping Use Never Used 10/26/24 10:20 PHQ-9: PHQ-9 Score PHQ-9: Total score 0 10/26/24 10:52 Depression Screening Interpretation: Negative Thrive Assessment: Date of Thrive Assessment Date Thrive assessed 10/26/24 10/26/24 10:28 Currently or been in a relationship where the following occur: No concerns reported Const Other: General: no acute distress, well developed, alert and awake Nutritional Appearance: well nourished Orientation/consciousness: patient oriented x3 HENMT Head: Yes normocephalic and Yes atraumatic Ears: hearing grossly normal bilaterally and TM's normal bilaterally General nose exam: Normal external nose present and Normal nares present Mouth: Normal oral and palatal mucosa present and moist mucous membranes Teeth and gingiva: dentition normal Throat: Yes oropharynx normal Eyes Pupils: Equal, round and reactive pupils present and Pupil accommodation reflex normal EOM: EOMs intact bilaterally Neck Neck: Yes normal visual inspection, Yes no lymphadenopathy and Yes trachea midline Thyroid: Thyroid normal Carotids: no bruits Lymphatic: no lymphadenopathy noted Chest Chest palpation & inspection: normal inspection of the chest Resp Effort & Inspection: normal respiratory effort Auscultation: clear to auscultation bilaterally Cardio Rate: regular rate Rhythm: regular rhythm Heart sounds: S1 normal heart sound present, S2 normal heart sound present, no gallops, no murmurs and no rubs Bruits: no abdominal aortic bruits and no carotid bruits GI Palpation (GI): No Abdominal aortic bruit present, Soft to palpation, nontender, No hepatosplenomegaly present and No Rebound tenderness present Auscultation: normal bowel sounds General: Yes no CVA tenderness Back/Spine/Pelvis Back: no CVA tenderness Cervical Spine: cervical ROM normal and No Cervical spine tenderness Thoracic/Lumbar Spine: thoraco-lumbar ROM normal, No pain with thoraco-lumbar ROM, No thoracic spinal tenderness and No lumbar spinal tenderness Skin General: warm and dry. Normal skin color. Normal skin turgor Lesions: no lesions Rashes: no rashes Trauma: no lacerations or abrasions Wounds: no wounds Nails: normal Neuro General: patient oriented x3, gait normal and CN's II-XI intact bilaterally Cranial nerves: Yes Equal, round and reactive pupils present Cognition (Neuro): normal cognition Gait exam (Neuro): Normal gait present Motor exam (neuro): 5/5 motor strength present throughout Sensory Exam: No Sensory deficit (Neuro) Deep tendon reflexes (DTR's): Right patellar reflex intensity grade: 2+ and Left patellar reflex intensity grade: 2+ Extrem General: Yes normal to inspection, No edema and No calf tenderness Psych Appearance: grossly normal Affect: normal affect Attitude: cooperative Thought process: Normal thought process present Immunizations Boostrix Tdap 2.5 Lf unit-8 mcg-5 Lf/0.5 mL intramuscular syringe Performing Provider: Candace La CNP Performing Location: [facility] Administered by: Aleksandra Jauregui RN on 10/26/24 11:10 Dose Route Admin Location Dispensed Lot Number Expiration Date NDC Wire Stitcher Operator 0.5 mL IM Right Deltoid 0.5 mL [id number] 01/18/27 72669-344-31 Lala Total Dispensed Waste 0.5 mL 0 % VIS Given Date VIS Provided VIS Publication Date 10/26/24 Single Vaccine 20 Eligibility Eligibility Date Funding Source Not [facility] Eligible 10/26/24 Private Coding Level of Care Code Est Pt Prev Care 18-39y(19532) Diagnoses Physical exam, annual Z00.00 Anemia D64.9 Obesity, morbid, BMI 40.0-49.9 E66.01 Hypercholesterolemia E78.00 Eye exam, routine Z01.00 Additional Codes PAZ-7 Assessment Billing - PAZ-7 Assessment Tool: PAZ-7 Assessment 69922 ([id number]) PHQ-9 - 80022 - PHQ-9 Billing: Yes ([id number]) Assessment & Plan Assessment & Plan (1) Physical exam, annual: Code(s): Z00.00 - Encounter for general adult medical examination without abnormal findings Category: Medical Plan: Normal physical exam of a 39-year-old female. No significant functional limitation noted. Continue current treatment regimen. Healthy diet and routine exercise encouraged. (2) Anemia: Code(s): D64.9 - Anemia, unspecified Category: Medical Plan: Recent H&H and MCV level in May were low, 11.2/34.6 and 71.2 respectively; iron studies, vitamin B12, and folate levels were normal. She is on folic acid 1 mg daily. Will recheck CBC. Was seen by [facility] hematology/oncology but then a follow-up as planned. Encouraged to call and schedule a follow-up appointment with [facility] Hematology/Oncology. Verbalized understanding and agreed with the plan. (3) Obesity, morbid, BMI 40.0-49.9: Code(s): E66.01 - Morbid (severe) obesity due to excess calories Category: Medical Plan: She currently weighs 253 lb, BMI is 42.2. Healthy diet and routine exercise encouraged. Declines referral to weight management clinic. Followed by [facility] director pharmacovigilance/dietitian. Verbalized understanding and agreed with the plan. (4) Hypercholesterolemia: Code(s): E78.00 - Pure hypercholesterolemia, unspecified Category: Medical Plan: Recent total cholesterol and LDL levels are elevated, 264 and 189 respectively. She has history of elevated total cholesterol and LDL levels. Declines medication treatment at this time and notes that she will make healthy lifestyle changes. Advised to limit foods high in saturated fat and avoid foods high in trans fat. Routine exercise encouraged. Fast for 10-12 hours, may drink water, and perform lipid panel blood work 2-3 days before next visit. Follow-up for telehealth visit in 2 months. Verbalized understanding and agreed with the plan. (5) Eye exam, routine: Code(s): Z01.00 - Encounter for examination of eyes and vision without abnormal findings Category: Medical Plan: Last eye exam was 4 years ago. Referred to Ophthalmology for routine eye exam. Orders: Orders TDaP Immunization Today Z23 - Encounter for immunization Lipid Panel Today E78.00 - Pure hypercholesterolemia, unspecified Complete Blood Count no Diff Today D64.9 - Anemia, unspecified Referrals Ophthalmology Referral Z01.00 - Encounter for examination of eyes and vision without abnormal findings
[2024-10-26 10:22] VITALS: BP 129/73; PULSE 89; RESP 16; TEMP 37.1; O2SAT 98; BMI 42.2
--- OUTSIDE RECORDS SUMMARY | 2024-10-26 11:04 | XMS_ITS | Data Portability ---
Author Organization [facility] [address] Address [address] [place] [address] Assessment No assessment recorded. Plan of Treatment Reminders Order Date Submit Date Provider Last Modified By Organization Details Last Modified Time Details Appointments None recorded. Lab None recorded. Referral None recorded. Procedures None recorded. Surgeries None recorded. Imaging None recorded. Medication Orders cyclobenzap rine 10 mg tablet 2023 024 [id number], [address] [place], [address], 12:42:11 naproxen 500 mg tablet 2023 024 [id number], [address] [place], [address], 12:42:11 Patient TargetsNo targets recorded. Patient Instructions Encounter Date Encounter Id Patient Instructions Last Modified By Organization Details Last Modified Time 11/02/2023 [id number] neck pain: care instructions [email or web address] Not available 11/02/2023 12:42:09 Reason for Referral None Reported. Problems Name Problem SNOMED Code Status Onset Date Resolution Date Notes Provider Name and Address Organization Details Recorded Time Anemia 300751090 Active 2023 [facility] 12:25:13 Muscle spasm of cervical muscle of neck 833074578508 Active 2023 Martell Michael NP [address], [place], [id number] , [facility] 12:41:22 Problem Notes None recorded. Medical Equipment [...] Last Updated DateTime 165.1 cm 40.4 kg/m2 658989. 95 g 0 18 /min 96.8 [degF] 100 % 100 % 91 /min 132/86 mm[Hg] Aida Daigle [facility] 12:28:58 Social History Question Answer Notes LastModified by [employer] Details LastModified Time Tobacco Smoking Status Never Smoker Aida schmidt PA [facility] 11/02/2023 12:25:41 Have You Had A Flu Shot This Season? No Information not available 11/02/2023 If No, Would You Like A Flu Shot Today? No Information not available 11/02/2023 Have You Recently Traveled Abroad? No Information not available 11/02/2023 Sex: Unknown Functional Status Question Answer Note LastModified by [employer] Details LastModified Time How many times per [...] SNOMED-CT Code Diagnosis ICD10 Code Diagnosis Note [id number] Martell [place] [address] [address] 11/02/2023 12:16:34 11/02/2023 12:45:09 Muscle spasm of cervical muscle of neck 1073605561 04 M62.838 - Good neck mechanics, posture, [...] Amaya Member ID Guarantor Name 11/02/2023 1 [facility] [id number] Pratima Herron [id number] 1 Pratima Herron OBGyn Episode No OBEpisode recorded.
== END 2024-10-26 11:12 | disposition home or self-care (01) ==
LOC: HO.HMCFM 10:14
PROVIDERS: PCP Nurse Practitioner Family; Visit Provider Nurse Practitioner Family
DX: Z00.00 Encounter for general adult medical examination without abnormal findings (principal); D64.9 Anemia, unspecified; E66.01 Morbid (severe) obesity due to excess calories; Z68.41 Body mass index [BMI] 40.0-44.9, adult; E78.00 Pure hypercholesterolemia, unspecified; Z23 Encounter for immunization

== ENCOUNTER → 2024-10-26 10:13 | Outpatient (BNVA) | payer OTHER, SELFPAY | PROVIDERS: PCP Nurse Practitioner Family; Visit Provider Nurse Practitioner Family | DX: Z00.00 Encounter for general adult medical examination without abnormal findings (principal); Z23 Encounter for immunization; D64.9 Anemia, unspecified; E66.01 Morbid (severe) obesity due to excess calories; Z68.41 Body mass index [BMI] 40.0-44.9, adult; E78.00 Pure hypercholesterolemia, unspecified; Z13.31 Encounter for screening for depression; Z13.39 Encounter for screening examination for other mental health and behavioral disorders | CPT/HCPCS: 90471; 90715; 96127; 99395 ==

== ENCOUNTER 2024-10-26 11:20 | Outpatient (REF) | payer OTHER, SELFPAY ==
[2024-10-26 14:11] LABS: Hematocrit 33.4 % (37.0-47.0); Hemoglobin 11.0 g/dl (12.0-16.0); Mean Corpuscular HGB Conc 32.9 g/dl (31.0-35.0); Mean Corpuscular Hemoglobin 23.2 pg (27.0-33.0); Mean Corpuscular Volume 70.5 fL (80.0-98.0); NRBC Abs Auto 0.000 X10*3/uL (0.0-0.012); NRBC Pct Auto 0.0 /100WBC (0.0-0.2); Platelet Count 287 X10*3/uL (160-400); Red Blood Count 4.74 X10*6/uL (4.20-5.50); White Blood Count 5.1 X10*3/uL (4.8-10.8)
[2024-10-26 14:26] LABS: Cholesterol 260 mg/dL (<200); HDL Cholesterol 51 mg/dL (>40); Triglycerides 105 mg/dL (<150)
== END 2024-10-26 11:21 | disposition home or self-care (01) ==
LOC: HO.WFDLDS 11:20
PROVIDERS: Visit Provider Nurse Practitioner Family
DX: Z23 Encounter for immunization (principal); E78.00 Pure hypercholesterolemia, unspecified; D64.9 Anemia, unspecified
CPT/HCPCS: 36415; 80061; 85027

== ENCOUNTER 2024-11-15 09:28 | Outpatient (AMB) | payer OTHER, SELFPAY ==
[2024-11-15 09:46] VITALS: BMI 41.6
--- NOTE | 2024-11-15 09:46 | A.OFFVIS_ITS ---
VS Expanded 11/15/24 09:46 Height 5 ft 5 in Weight 250 lb 3.594 oz BMI 41.6 Intake Visit Reasons: Obesity, hyperlipidemia Allergies No Known Allergies Allergy (Verified 10/26/24 10:43) Nutrition Presentation Details: Pt presents for MNT for obesity and high cholesterol Pt reports lately has been traveling and choosing higher calorie/fat meals Physical activity has lessened BS Monitoring Most Recent Diabetes Results: Cholesterol, (<200) 260 mg/dL H 10/26/24 HDL Cholesterol, (>40) 51 mg/dL 10/26/24 Triglycerides, (<150) 105 mg/dL 10/26/24 PFSH Medical History No pertinent past medical history Surgical History H/O removal of neck cyst No pertinent past surgical history Family History Mother High blood pressure Alcoholism in family Rheumatoid arthritis Father Diabetes Psychiatric diagnosis Paternal Grandmother Diabetes Paternal Grandfather Cancer Other FH: mental illness Substance abuse Social History Housing: Apartment Patient Tobacco Use Status: Never used Tobacco e-Cigarette/Vaping Use: Never Used Second Hand Smoke Exposure: No service: No Current occupational status: employed Current occupation: [employer] Current occupational exposures/hazards: No Cognitive needs: No Hearing needs: No Vision needs: No Female Reproductive History Menstrual Age of Menarche: 11 Assessment & Plan Assessment & Plan (1) Obesity, morbid, BMI 40.0-49.9: Code(s): E66.01 - Morbid (severe) obesity due to excess calories Category: Medical Plan: Lab: Wt: 112 Kg ( 07/2023 ), 110 kg (11/2023), 112 (03/23), 05/25), 06/22, 114kg (11/22), Est kcal needs as per MSJ: 2500 (40% carb, 30% protein/fat) Est fluid needs as per 25-30 ml/d: 3300 Est prot per day as per 1 g/kg bw: 112 Recommend fiber intake : 8-10 g per day and gradually increase to 25-28 g per day for women and 35-38 g for men or as tolerated Recommend sodium intake per day : less than 2000 mg Educated patient on: ( R = reviewed V = verbalizes understanding N/R = needs review N/A = not applicable * Food sources of carbohydrate, adequate serving sizes and its role in various health conditions: R V * Differences between complex carbohydrates a simple carbohydrates, role of fiber in diet: R * Lean protein sources of foods: R * Differences between types of fats and role in diet (mono on saturated fat fatty acids, saturated fatty acids, trans fats): R * Food sources of sodium in salt and healthy modifications for heart health in kidney health: R V R/V * Vitamins and minerals: R * Healthy plate method concept: R * Physical activity: Benefits a precaution: R * Hydration: R Patient Instructions: Keep consistent with physical activity: 3 x/week, 1hr walking/biking/dancing - set it in your calendar Choose low fat options when eating out (salad with sand vs fries with sand as example), carry lunch bag/healthier snacks when traveling Include baked fish twice a week 5-6 ibs wt loss by next follow up Coding Level of Care Code Nutr Indiv Subseq (38531) Diagnoses Obesity, morbid, BMI 40.0-49.9 E66.01 Time Spent (min) 30
== END 2024-11-15 10:34 | disposition home or self-care (01) ==
LOC: HO.ENCR 09:29
PROVIDERS: PCP Nurse Practitioner Family; Visit Provider Dietitian, Registered
DX: E66.01 Morbid (severe) obesity due to excess calories (principal)

== ENCOUNTER → 2024-11-15 09:28 | Outpatient (BNVA) | payer OTHER, SELFPAY | PROVIDERS: PCP Nurse Practitioner Family; Visit Provider Dietitian, Registered | DX: E66.01 Morbid (severe) obesity due to excess calories (principal) | CPT/HCPCS: 97803 ==

== ENCOUNTER 2024-12-23 10:43 | Outpatient (REF) | payer OTHER, SELFPAY ==
[2024-12-23 15:02] LABS: Cholesterol 229 mg/dL (<200); HDL Cholesterol 43 mg/dL (>40); Triglycerides 108 mg/dL (<150)
== END 2024-12-23 10:44 | disposition home or self-care (01) ==
LOC: HO.WFDLDS 10:43
PROVIDERS: Visit Provider Nurse Practitioner Family
DX: E78.00 Pure hypercholesterolemia, unspecified (principal)
CPT/HCPCS: 36415; 80061

== ENCOUNTER 2024-12-28 13:58 | Outpatient (AMB) | payer OTHER, SELFPAY ==
--- NOTE | 2024-12-28 13:56 | A.OFFPC_ITS ---
Intake Visit Reasons: Telehealth 2 mos hypercholesterolemia Intake Note: patient here for 2 month Telehealth follow up on hypercholesterolemia Dispatch Manager Required: No Is last menstrual period known: Yes Last menstrual period: 11/03/24 Post menopausal: No Patient : No Allergies No Known Allergies Allergy (Verified 12/28/24 14:29) Medication List - Last Reconciled 12/28/24 by Candace La CNP folic acid 1 mg PO DAILY Tobacco use date assessed: 12/28/24 Dental Screening Dental Screen Date: 12/28/24 Did you have a dental visit in the last 12 months?: Yes Did you have a dental problem in the last 6 months where you did not have access to dental care?: No Was dental information given to patient?: Patient has dentist HPI HPI Comments History of Present Illness Details 39-year-old [facility] results. She admits to taking folic acid 1 mg daily. She notes that she has been making healthy lifestyle changes. She offers no complaints and denies acute symptoms at this time. [facility] Medical History No pertinent past medical history Surgical History H/O removal of neck cyst No pertinent past surgical history Family History Mother High blood pressure Alcoholism in family Rheumatoid arthritis Father Diabetes Psychiatric diagnosis Paternal Grandmother Diabetes Paternal Grandfather Cancer Other FH: mental illness Substance abuse Social History Housing: Apartment Patient Tobacco Use Status: Never used Tobacco e-Cigarette/Vaping Use: Never Used Second Hand Smoke Exposure: No Patient : No service: No Current occupational status: employed Current occupation: [employer] Current occupational exposures/hazards: No Cognitive needs: No Hearing needs: No Vision needs: No Female Reproductive History Menstrual Age of Menarche: 11 Date of last menstrual period: 11/03/24 Questionnaire Thrive Questionnaire Date Thrive assessed: 10/26/24 PAZ-7 AMB Questionnaire PAZ-7 Date PAZ - 7 assessed: 10/26/24 Source: Developed by Drs. Farhad Curtis, Jessica Phillips, Franky Del Angel and colleagues, with an educational areli from [employer]. Review of Systems Const Details: Denies chills, Denies fatigue, Denies fever(s), Denies headache(s) and Denies weakness Cardiac Denies chest pain, Denies claudication, Denies leg edema, Denies lightheadedness, Denies palpitations, Denies dyspnea, Denies dyspnea on exertion, Denies orthopnea and Denies other (Loss of consciousness) Resp Denies cough, Denies excessive phlegm production, Denies dyspnea, Denies dyspnea on exertion, Denies snoring and Denies wheezing Physical exam (Primary Care) Tobacco/Smoking Status: Tobacco use Status Tobacco use date assessed 12/28/24 12/28/24 13:57 Patient Tobacco Use Status Never used Tobacco 12/28/24 13:57 e-Cigarette/Vaping Use Never Used 12/28/24 13:57 Thrive Assessment: Date of Thrive Assessment Date Thrive assessed 10/26/24 12/28/24 13:57 Telehealth Telehealth Telehealth Platform: Telephone Location of provider rendering services: practice address Location of patient: address on file Patient Identification confirmed using: Name, : Yes Telehealth method: voice only Patient verbally consented to treatment: Yes Patient verbally consented to billing insurance company: Yes Patient informed of any privacy concerns related to visit: Yes Coding Level of Care Code Tele Est Pt Level 3 (55736) Diagnoses Hypercholesterolemia E78.00 Microcytic anemia D50.9 Time Spent (min) 10 Assessment & Plan Assessment & Plan (1) Hypercholesterolemia: Code(s): E78.00 - Pure hypercholesterolemia, unspecified Category: Medical Plan: Recent total cholesterol and LDL levels are elevated, 229 and 165 respectively, triglycerides and HDL levels are normal. Previous total cholesterol and LDL were 260 and 158 respectively. Advised to limit foods high in saturated fat and avoid foods high in trans fat. Routine exercise encouraged. Fast for 10-12 hours, may drink water, and perform lipid panel blood work a few days before next visit. Follow-up for telehealth visit in 2 months. Return sooner with symptoms or concerns. Verbalized understanding and agreed with the plan. (2) Microcytic anemia: Code(s): D50.9 - Iron deficiency anemia, unspecified Category: Medical Plan: Recent H&H level baseline low. She has history of microcytic anemia with normal iron studies. Continue to take folic acid as prescribed. Encouraged to follow-up with Hematology/Oncology. Verbalized understanding and agreed with the plan. Orders: Orders Lipid Panel 2 Months E78.00 - Pure hypercholesterolemia, unspecified
== END 2024-12-28 14:43 | disposition home or self-care (01) ==
LOC: HO.HMCFM 13:58
PROVIDERS: PCP Nurse Practitioner Family; Visit Provider Nurse Practitioner Family
DX: E78.00 Pure hypercholesterolemia, unspecified (principal); D50.9 Iron deficiency anemia, unspecified